=== PATIENT | male | born 1980 | race Caucasian/White ===

== ENCOUNTER 2024-04-22 09:28 | Emergency (ER) | payer MEDICARE, MEDICAID, SELFPAY ==
--- NOTE | 2024-04-22 | XR_ITS ---
Examination: MRI lumbar spine, without intravenous contrast. MRI lumbar spine , with intravenous contrast. Exam date and time: April 22, 2024 1516 hrs. Indications: Low back pain today, osteolytic lesion: CT scan of the abdomen today, abdominal and back pain Technique: Multiple axial, sagittal and coronal images of the lumbar spine have been obtained with the Siemens high-resolution 1.5 Jojo MRI scanner. Images obtained included T2 weighted fat suppressed sagittal sections, TR 3500, TE 46, T2 weighted coronal fat suppressed images, TR 3050, TE 84, T2-weighted transverse fat suppressed images, TR 30-60, TE 63, proton density transverse images, TR 4720, TE 46, and T1 weighted coronal images, TR 560, TE 13. Axial, sagittal and coronal images are obtained post intravenous 18 cc gadolinium Findings: Precontrast images demonstrate abnormal signal replacing the L2 vertebral body Postcontrast images demonstrate diffuse abnormal enhancement of this vertebral body including epidural tumor encroaching upon the right margin of the thecal sac, extending to both intervertebral foramina axial image 27 Enhancing tumor replaces the L2 vertebral body extending into the right pedicle with soft tissue enhancing tumor paraspinal Epidural enhancement also posterior to L3, L4, L5 suspicious for tumor involvement Impression: Tumor replaces the L2 vertebral body encroaching upon the spinal canal axial image 27, highest on the differential list is osseous metastatic disease Consider MRI cervical thoracic spine post contrast follow-up, whole body bone scan follow-up
[2024-04-22 10:04] VITALS: BP 125/82; PULSE 98; RESP 20; TEMP 36.4; O2SAT 97
[2024-04-22 10:06] VITALS: BMI 29.6
--- NOTE | 2024-04-22 10:16 | XR_ITS ---
Examination: CT abdomen and pelvis without contrast. Coronal 3-D reconstructions. Sagittal 2-D reconstructions. Date and time of exam:April 22, 2024 1039 hrs. Indications: Left-sided flank pain beginning 2 days ago CTDI: vol (mGy): 10.1 DLP: (mGycm): 598 Technique: Axial images of the abdomen have been obtained, 3 mm slice thickness Intravenous contrast material has not been administered. Low dose protocols were performed. One or more of the following dose reduction techniques were used; automated exposure control, adjustment of the mA and/or KV according to patient size, use of iterative reconstruction technique. Findings: No focal liver or splenic lesions Fatty liver No gallstones No pancreatic mass Multiple 1 to 2 mm right renal calculi No hydronephrosis or ureteral calculi Mild left hydronephrosis with wall thickening of the urinary bladder No definite ureteral calculi Aorta normal size No bowel obstruction Normal appendix 24 x 25 mm osteolytic lesion posterior L2 vertebral body This may represent a hemangioma but other osteolytic lesions not excluded, as the cortex along the right lateral aspect of this vertebral body appears discontinuous, axial image 137 Impression: Multiple nonobstructing right renal calculi Left mild hydronephrosis and thickening of the urinary bladder wall consistent with left urinary tract infections cystitis Large osteolytic lesion L2 vertebral body, differential would include hemangioma, other osteolytic lesions not excluded, recommend MRI lumbar spine follow-up pre and postcontrast
--- NOTE | 2024-04-22 10:16 | PD.EDRME ---
Rapid Medical Screening Exam RME Arrival date/time: 04/22/24 09:28 33-year-old male presents the emergency department today with caregiver reports patient has lower back pain and flank pain Chief Complaint: Back Pain/Injury Time Seen by Provider: 04/22/24 09:33 Vital signs: Vital Signs Temperature 97.5 F 04/22/24 10:04 Pulse Rate 98 04/22/24 10:04 Respiratory Rate 20 04/22/24 10:04 Blood Pressure 125/82 04/22/24 10:04 Pulse Oximetry (%) 97 04/22/24 10:04 Oxygen Delivery Method Room Air 04/22/24 10:04
[2024-04-22 10:52] LABS: Collection Type, Urine Clean Catch
[2024-04-22 11:03] LABS: Basophils # (Auto) 0.1 Thou/mm3 (0.0-0.2); Basophils % (Auto) 1 % (0-2.5); Eosinophils # (Auto) 0.3 Thou/mm3 (0.0-0.5); Eosinophils % (Auto) 3 % (0-10); Hematocrit 47.3 % (41.0-53.0); Hemoglobin 16.6 g/dL (13.5-16.0); Immature Granulocytes % (Auto) 0 % (0-0); Immature Granulocytes Auto 0.03 Thou/mm3 (0.00-0.00); Lymphocytes # (Auto) 2.3 Thou/mm3 (1.0-4.8); Lymphocytes % (Auto) 27 % (10-50); Mean Corpuscular HGB Conc 35.1 g/dl (31.0-37.0); Mean Corpuscular Hemoglobin 27.9 pg (25.0-35.0); Mean Corpuscular Volume 79 fL (80-100); Monocytes # (Auto) 0.9 Thou/mm3 (0.0-0.8); Monocytes % (Auto) 10 % (0-12); Neutrophils % (Auto) 58 % (37-80); Nucleated Red Blood Cell % 0 /100 WBC (0); Platelet Count 281 Thou/mm3 (140-440); RDW Standard Deviation 39.7 fL (35.1-43.9); Red Blood Count 5.96 Miln/mm3 (4.50-5.90); White Blood Count 8.5 Thou/mm3 (3.8-10.6)
[2024-04-22 11:08] LABS: Bilirubin,Urine Negative (Negative); Blood,Urine Negative (Negative); Clarity,Urine Clear (Clear/Hazy); Color,Urine Lt-Yellow (Lt Yel-Yel); Culture Indicated,Urine Not Indicated; Glucose, Urine Negative (Negative); Ketones,Urine Negative (Negative); Leukocyte Esterase,Urine Negative (Negative); Nitrite,Urine Negative (Negative); PH,Urine 6.5 (5.0-7.0); Protein,Urine Negative (Neg - Trace); RBC,Urine 2 /hpf (0-3); Specific Gravity,Urine 1.009 (1.001-1.035); Squamous Epithelial Cell,Urine < 1 /hpf (0-5); Urobilinogen,Urine Negative mg/dL (0.0-1.0); WBC,Urine 1 /hpf (0-5)
[2024-04-22 11:08] LABS: Alanine Aminotransferase 37 U/L (10-49); Albumin/Globulin Ratio 1.7 (1.2-2.2); Alkaline Phosphatase 140 U/L (46-116); Anion Gap 6 (7-16); Aspartate Amino Transferase 18 U/L (0-34); BUN/Creatinine Ratio 16 Ratio (12-20); Bilirubin,Total 0.6 mg/dL (0.3-1.2); Blood Urea Nitrogen 14 mg/dL (9-23); Calcium 10.5 mg/dL (8.3-10.6); Calcium (Corrected) 10.5 mg/dL (8.5-10.1); Carbon Dioxide 27.3 mMol/L (20.0-31.0); Chloride 104 mMol/L (98-107); Creatinine (Component) 0.9 mg/dL (0.6-1.3); Estimated Creatinine Clearance 121.3 mL/min (>60); Glucose 99 mg/dL (74-106); Lipase 53 U/L (12-53); Osmolality,Calculated 274 (275-295); Potassium 4.1 mMol/L (3.4-5.1); Sodium 137 mMol/L (136-145); eGFR > 60 See Note
[2024-04-22 11:20] LABS: Amphetamine/Methamp Scrn,U Negative (Negative); Barbiturate Screen,Urine Negative (Negative); Benzodiazepines Screen,Urine Negative (Negative); Benzoylecgonine Screen, Ur Negative (Negative); Fentanyl Screen,Urine Negative (Negative); Opiate Screen,Urine Negative (Negative); THC Screen,Urine Negative (Negative)
--- NOTE | 2024-04-22 12:43 | PD.EDBACK ---
ED Back Injury Pain RME/HPI General Chief Complaint: Back Pain/Injury Stated Complaint: LEFT FLANK PAIN Time Seen by Provider: 04/22/24 09:33 Arrival date/time: 04/22/24 09:28 RME / HPI RME / HPI Narrative: 33-year-old male with significant history of mental retardation, presents the emergency department today with caregiver reports patient has lower back pain and flank pain, is been ongoing for several days, getting worse last night, according to him severity is 10 out of 10. Patient denies any numbness to the leg. Denies any incontinent both bowel and bladder. Denies any fever. Denies any other complaints. No medication is taken prior to arrival. Patient is ambulatory. Related Data Home Medications ?Medication ?Instructions ?Recorded ?Confirmed Benztropine Mesylate * (COGENTIN *) 2 mg PO DAILY TREMORS ##0 10/01/12 06/22/23 metoprolol tartrate 25 mg tablet 25 mg PO BID 10/19/19 06/22/23 risperidone 0.25 mg tablet 0.25 mg PO QDAY 10/19/19 06/22/23 sertraline 20 mg/mL oral 100 mg PO QDAY 06/18/23 06/23/23 concentrate Previous Rx's ?Medication ?Instructions ?Recorded sulfamethoxazole 800 1 tab PO BID #14 tabs 07/25/23 mg-trimethoprim 160 mg tablet (Bactrim DS) Allergies Allergy/AdvReac Type Severity Reaction Status Date / Time No Known Allergies Allergy Verified 04/22/24 14:26 Review of Systems Review of Systems Narrative Review of Systems: Review of system reviewed and within normal limits except mentioned in HPI ED Exam Narrative Physical exam: VITAL SIGNS: Reviewed. GENERAL APPEARANCE: Alert and interactive, follows commands, no acute distress, HEAD AND FACE: Non-traumatic. ENT: PERRL, pink conjunctivitis, eyelid no trauma, Mucous membrane moist. NECK: Supple, nontender, no nuchal rigidity. CHEST: No tenderness, no crepitus, no paradoxical movement, no retractions. LUNGS: Clear, well ventilated, symmetric, no rales, no wheezing, no ronchi, no stridor, good breath sounds bilaterally. HEART: Regular rate, regular rhythm, no murmur, no gallops. ABDOMEN: Soft, positive bowel sounds, nondistended, no guarding, nontender, no rebound, no masses, RECTAL: Deferred. GENITAL: Deferred. NEUROLOGICAL: Gross motor function intact sensory function intact, Appropriate for age. MUSCULOSKELETAL: low back tenderness, left flank tenderness, full range of motion. EXTREMITIES: Nontender, full range of motion. SKIN: Color pink, dry, no rash, no lacerations, no abrasions, no contusions. LYMPHATICS: Deferred. Course Quality Measures none Orders Category Date Time Status MRI Screening NOW Care 04/22/24 12:38 Active Referral - Vp Home Health Stat Cons 04/22/24 18:[address] abdomen pelvis wo con Stat Exams 04/22/24 10:16 Completed MR lumbar spine wo/w con Stat Exams 04/22/24 Completed CBC Stat Lab 04/22/24 10:28 Completed Comprehensive Metabolic Panel Stat Lab 04/22/24 10:28 Completed Drug Screen,Urine Stat Lab 04/22/24 10:43 Completed Lipase Stat Lab 04/22/24 10:28 Completed UA, C/S IF [Urinalysis, C/S if Indicated] Stat Lab 04/22/24 10:43 Completed Montelukast Sodium [Singulair] Med 04/22/24 20:32 Discontinued 10 mg PO X1 ONE risperiDONE [RisperDAL] Med 04/22/24 20:31 Discontinued 0.5 mg PO X1 ONE Vital Signs Vital signs: Vital Signs Temperature 97.5 F 04/22/24 10:04 Pulse Rate 98 04/22/24 10:04 Respiratory Rate 20 04/22/24 10:04 Blood Pressure 125/82 04/22/24 10:04 Pulse Oximetry (%) 97 04/22/24 10:04 Oxygen Delivery Method Room Air 04/22/24 10:04 Back Pain / Injury MDM Narrative MDM Narrative:: 33-year-old male with significant history of mental retardation, presents the emergency department today with caregiver reports patient has lower back pain and flank pain, is been ongoing for several days, according to him severity is 10 out of 10. Patient denies any numbness to the leg. Denies any incontinent both bowel and bladder. Denies any fever. Denies any other complaints no medication is taken prior to arrival. Patient is ambulatory. MRI of the lumbar spine showed L2 vertebral replaced by a tumor, with encroachment on the spinal canal Spoke with transfer center by [facility], who accepted the patient, accepting MD Dr. Stokes Patient data External records reviewed:: None Clinical information provided by:: patient and admin assistant Social determinants that could affect healthcare access:: none Patient has the following chronic illnesses:: Mental retardation How is presenting disease/condition affected by chronic disease/condition?: no chronic disease Evaluation data The following diagnostics were reviewed and interpreted by me:: lab results and radiology exam(s) Lab and/or radiology exams considered but not ordered:: None Interpretation Summary: Patient's laboratory workup all came back unremarkable. MRI of the lumbar spine showed Tumor replaces the L2 vertebral body encroaching upon the spinal canal axial image 27, highest on the differential list is osseous metastatic disease Consider MRI cervical thoracic spine post contrast follow-up, whole body bone scan follow-up Medications / Prescriptions Medications or Prescriptions considered but not ordered:: None Medication administrations:: Medication Administration History Discontinued Medications Montelukast Sodium (Montelukast Sodium 10 Mg Tablet) 10 mg PO X1 ONE Stop: 04/22/24 20:33 Risperidone (Risperidone 0.5 Mg Tablet) 0.5 mg PO X1 ONE Stop: 04/22/24 20:32 Risperidone and montelukast Consultations Consultation(s) initiated? (list below): Yes Consultation #1 (Physician, Specialty, Details): Transfer center from [facility] Diagnosis Differential diagnosis back pain/injury: lumbar radiculopathy, sciatica and other (L2 tumor) Most likely diagnosis given after review of the tests above:: L2 tumor Admission Indicated Admission indicated?: indicated Explain why admission is indicated or not indicated:: Patient transferred to [facility] Admission Request Was there a request for admission?: No Disposition Plan Disposition Plan: Transfer Discharge Attestation Discharge Attestation: Got accepted to [facility] , accepting Dr. Divya BURROWS Discharge Plan Plan Patient Disposition: HOME (Self Care) Disposition Comment: Stable Prescriptions/Referrals Prescriptions/Med Rec: No Action Benztropine Mesylate * (COGENTIN *) 2 MG tablet 2 mg PO DAILY Qty: 0 risperidone 0.25 mg Tablet 0.25 mg PO QDAY metoprolol tartrate 25 mg Tablet 25 mg PO BID sertraline 20 mg/mL Concentrate 100 mg PO QDAY sulfamethoxazole-trimethoprim [Bactrim DS] 800-160 mg tablet 1 tab PO BID Qty: 14 0RF Referrals: Sameer Ellis MD [Primary Care Provider] - In 1 week Problem List Clinical Impression: Lumbar spine tumor Patient/Caregiver Discharge Instructions Print Language: Maltese Stand Alone Forms: Mary Award Info., Patient Portal Info Letter
[2024-04-22 13:58] VITALS: BP 117/80; PULSE 81; RESP 20; TEMP 36.7; O2SAT 96
--- NOTE | 2024-04-22 15:15 | PC.NURSE ---
patient taken to MRI
[2024-04-22 16:23] VITALS: BP 114/83; PULSE 91; RESP 18; TEMP 36.7; O2SAT 96
--- NOTE | 2024-04-22 18:12 | PC.CM ---
Addendum entered by Erin Coffey RN 04/22/24 18:43: [facility] called and spoke to Jimmy Price and they told him they do not do spine surgery. They declined patient. I faxed over information to [facility] and I initiated a transfer. I pushed over image. Original Note: I received a referral to transfer patient for neurosurgery due to L2 tumor encroaching the spinal canal. I contacted [facility] and I faxed over information. Packet started and CD made for packet.
--- NOTE | 2024-04-22 18:31 | PC.NURSE ---
patient asked for food okayed by salvador CHRISTENSEN gave patient sandwhich, applejuice and pudding.
[2024-04-22 18:38] VITALS: BP 135/90; PULSE 85; RESP 16; TEMP 36.7; O2SAT 98
--- NOTE | 2024-04-22 20:26 | PC.NURSE ---
2025,ACCEPTED TO [facility] BY , ED TO ED, REPORT #[phone], spoke to anaya
[2024-04-22 20:39] VITALS: BP 123/83; PULSE 110; RESP 18; TEMP 36.8; O2SAT 96
[2024-04-22] MEDS: MONTELUKAST SODIUM 10 MG TABLET PO (21:18)
[2024-04-22] MEDS: risperiDONE 0.5 MG TABLET PO (21:18)
[2024-04-22 21:27] VITALS: BP 136/86; PULSE 105; RESP 18; O2SAT 97
--- NOTE | 2024-04-22 22:20 | PC.NURSE ---
Report called to Zamzam RN [facility]. Pt alert and with NAD.
--- NOTE | 2024-04-22 22:21 | PC.NURSE ---
EMS here. Report given to ems. pT TAK[facility] BY AMBULANCE TO [id number]
== END 2024-04-22 22:28 | disposition short-term general hospital (02) ==
PROVIDERS: Nurse Practitioner Primary Care; Emergency Provider Emergency Medicine; PCP Family Medicine
DX: D49.2 Neoplasm of unspecified behavior of bone, soft tissue, and skin (principal); R10.9 Unspecified abdominal pain; Z75.1 Person awaiting admission to adequate facility elsewhere
CPT/HCPCS: 36415; 72158; 74176; 80053; 80307; 81001; 83690; 85025; 99285; A9579; A9270

== ENCOUNTER 2024-04-30 16:58 | Emergency (ER) | payer MEDICARE, MEDICAID, SELFPAY ==
[2024-04-30 16:59] VITALS: BMI 30.4
[2024-04-30 18:04] VITALS: BP 137/93; PULSE 89; RESP 19; TEMP 37.2; O2SAT 96
--- NOTE | 2024-04-30 18:18 | PD.EDRME ---
Rapid Medical Screening Exam RME Arrival date/time: 04/30/24 16:58 43 year old male present to ED for c/o of dutton check/ I have greeted and performed a focused initial assessment of this patient. A comprehensive ED assessment and evaluation of the patient, analysis of all test results, and completion of the medical decision making process will be conducted by additional ED providers. Chief Complaint: Back Pain/Injury Time Seen by Provider: 04/30/24 18:11 Vital signs: Vital Signs Temperature 98.9 F 04/30/24 18:04 Pulse Rate 89 04/30/24 18:04 Respiratory Rate 19 04/30/24 18:04 Blood Pressure 137/93 H 04/30/24 18:04 Pulse Oximetry (%) 96 04/30/24 18:04 Oxygen Delivery Method Room Air 04/30/24 18:04
[2024-04-30 18:45] LABS: Collection Type, Urine Catheter; Squamous Epithelial Cell,Urine 0 /hpf (0-5)
[2024-04-30 18:52] LABS: Basophils # (Auto) 0.1 Thou/mm3 (0.0-0.2); Basophils % (Auto) 1 % (0-2.5); Eosinophils # (Auto) 0.2 Thou/mm3 (0.0-0.5); Eosinophils % (Auto) 2 % (0-10); Hematocrit 47.8 % (41.0-53.0); Hemoglobin 16.8 g/dL (13.5-16.0); Immature Granulocytes % (Auto) 0 % (0-0); Immature Granulocytes Auto 0.03 Thou/mm3 (0.00-0.00); Lymphocytes # (Auto) 2.3 Thou/mm3 (1.0-4.8); Lymphocytes % (Auto) 26 % (10-50); Mean Corpuscular HGB Conc 35.1 g/dl (31.0-37.0); Mean Corpuscular Hemoglobin 28.1 pg (25.0-35.0); Mean Corpuscular Volume 80 fL (80-100); Monocytes % (Auto) 11 % (0-12); Neutrophils # (Auto) 5.3 Thou/mm3 (1.8-7.7); Neutrophils % (Auto) 60 % (37-80); Nucleated Red Blood Cell % 0 /100 WBC (0); Platelet Count 291 Thou/mm3 (140-440); RDW Standard Deviation 39.7 fL (35.1-43.9); Red Blood Count 5.97 Miln/mm3 (4.50-5.90); White Blood Count 8.9 Thou/mm3 (3.8-10.6)
[2024-04-30 18:53] LABS: Amorphous Crystals,Urine Present (Absent); Bilirubin,Urine Negative (Negative); Blood,Urine 2+ (Negative); Color,Urine Lt-Yellow (Lt Yel-Yel); Glucose, Urine Negative (Negative); Ketones,Urine Negative (Negative); Leukocyte Esterase,Urine Positive (Negative); Nitrite,Urine Positive (Negative); PH,Urine 7.5 (5.0-7.0); Protein,Urine 2+ (Neg - Trace); RBC,Urine 154 /hpf (0-3); Specific Gravity,Urine 1.013 (1.001-1.035); Urobilinogen,Urine Negative mg/dL (0.0-1.0); WBC,Urine 13 /hpf (0-5)
[2024-04-30 18:57] LABS: Clarity,Urine Hazy (Clear/Hazy)
[2024-04-30 19:19] LABS: Alanine Aminotransferase 18 U/L (10-49); Albumin, Serum 4.8 gm/dL (3.5-5.0); Albumin/Globulin Ratio 1.5 (1.2-2.2); Alkaline Phosphatase 134 U/L (46-116); Anion Gap 7 (7-16); Aspartate Amino Transferase 16 U/L (0-34); BUN/Creatinine Ratio 14 Ratio (12-20); Bilirubin,Total 0.5 mg/dL (0.3-1.2); Blood Urea Nitrogen 14 mg/dL (9-23); Calcium 10.9 mg/dL (8.3-10.6); Calcium (Corrected) 10.9 mg/dL (8.5-10.1); Carbon Dioxide 27.8 mMol/L (20.0-31.0); Chloride 105 mMol/L (98-107); Estimated Creatinine Clearance 109.7 mL/min (>60); Globulin 3.1 gm/dL (2.3-3.5); Glucose 114 mg/dL (74-106); Osmolality,Calculated 280 (275-295); Sodium 140 mMol/L (136-145); Total Protein 7.9 gm/dL (5.7-8.2); eGFR > 60 See Note
--- NOTE | 2024-04-30 19:27 | PD.EDRME ---
Rapid Medical Screening Exam RME Arrival date/time: 04/30/24 16:58 04/30/24 16:58 43 year old male present to ED for c/o of dutton check/ I have greeted and performed a focused initial assessment of this patient. A comprehensive ED assessment and evaluation of the patient, analysis of all test results, and completion of the medical decision making process will be conducted by additional ED providers. Chief Complaint: Back Pain/Injury Time Seen by Provider: 04/30/24 18:11 Vital signs: Vital Signs Temperature 98.9 F 04/30/24 18:04 Pulse Rate 89 04/30/24 18:04 Respiratory Rate 19 04/30/24 18:04 Blood Pressure 137/93 H 04/30/24 18:04 Pulse Oximetry (%) 96 04/30/24 18:04 Oxygen Delivery Method Room Air 04/30/24 18:04 RME Narrative: 04/30/24 16:58 43 year old male present to ED for c/o of dutton check/ I have greeted and performed a focused initial assessment of this patient. A comprehensive ED assessment and evaluation of the patient, analysis of all test results, and completion of the medical decision making process will be conducted by additional ED providers.
[2024-04-30 20:05] VITALS: BP 128/100; PULSE 100; RESP 18; TEMP 36.3; O2SAT 96
--- NOTE | 2024-04-30 21:22 | EDNOTE_ITS ---
ED Back Injury Pain RME/HPI General Chief Complaint: Back Pain/Injury Stated Complaint: POSS BLOOD IN MELGOZA Time Seen by Provider: 04/30/24 18:11 Arrival date/time: 04/30/24 16:58 RME / HPI RME / HPI Narrative: 04/30/24 16:58 43 year old male present to ED for c/o of melgoza check/ I have greeted and performed a focused initial assessment of this patient. A comprehensive ED assessment and evaluation of the patient, analysis of all test results, and completion of the medical decision making process will be conducted by additional ED providers. -------- Dr. Adkins's Main ED Evaluation: 43yo male presents to the ED requesting to have his melgoza catheter checked out. Patient states he's had some lower back pain, reporting he's seen mild blood in his melgoza bag, and is requesting for it to be checked out. He denies any fever, chills, N/V/D, abdominal pain or any other associated symptoms. No known allergies. Related Data Home Medications ?Medication ?Instructions ?Recorded ?Confirmed Benztropine Mesylate * (COGENTIN *) 2 mg PO DAILY TREMORS ##0 10/01/12 06/22/23 metoprolol tartrate 25 mg tablet 25 mg PO BID 10/19/19 06/22/23 risperidone 0.25 mg tablet 0.25 mg PO QDAY 10/19/19 06/22/23 sertraline 20 mg/mL oral 100 mg PO QDAY 06/18/23 06/23/23 concentrate Previous Rx's ?Medication ?Instructions ?Recorded sulfamethoxazole 800 1 tab PO BID #14 tabs 07/25/23 mg-trimethoprim 160 mg tablet (Bactrim DS) cephalexin 500 mg capsule 500 mg PO TID uti 7 days #21 caps 04/30/24 Allergies Allergy/AdvReac Type Severity Reaction Status Date / Time No Known Allergies Allergy Verified 04/30/24 17:01 Review of Systems Review of Systems Systems Reviewed: All systems reviewed, normal except as documented Past Medical History Past Medical History NEUROLOGIC: Negative Neurological Disorders or Seizures CARDIAC: Positive Cardiac Disorders and Hypertension; Negative Congestive Heart Failure RESPIRATORY: Positive Asthma; Negative Chronic Obstructive Pulmonary Disease (COPD) GASTROINTESTINAL: Negative Gastrointestinal Disorders GENITOURINARY: Positive Genitourinary Disorders (urinary retention) and Benign Prostatic Hyperplasia; Negative Renal Disease MUSCULOSKELETAL: Negative Musculoskeletal Disorders ENT: Positive Blind (Left, 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) ENDOCRINE: Negative Endocrine Disorders, Diabetes Mellitus Type 1 or Diabetes Mellitus Type 2 HEMATOLOGIC: Negative Blood Disorders or Sickle Cell Disease PSYCHO/SOCIAL: Positive Anxiety OTHER HISTORY: Positive Developmental Delay; Negative Autoimmune Disease, Blood Transfusions, Blood Transfusion Reaction, Anesthesia Reactions or Cancer Family History FAMILY HISTORY: Negative Family Psychiatric Problems, Family Respiratory Disorders, Family Cardiac Disorders, Family Gastrointestinal Problems, Family Cancer, Family Surgery or Family Anesthesia Reaction Social History SMOKING STATUS: Never smoker SUBSTANCE USE: does not use ED Exam Narrative Physical exam: GENERAL APPEARANCE: alert and oriented x 4, well-developed, well-nourished, no acute distress VITALS: All vitals were reviewed and the pulse ox is 96% on room air, which is normal according to my interpretation. HEENT: Normocephalic, atraumatic; pupils equal, round, reactive to light; EOMI; mucous membranes pink, moist; oropharynx clear NECK: Supple LUNGS: CTABL; no wheezes, no rales, no rhonchi HEART: Regular rate, regular rhythm; normal S1, S2; no murmurs ABDOMEN: non distended; normal BS; soft, no tenderness, no guarding, no rebound; no masses, no organomegaly, no hernia BACK: no CVA tenderness EXTREMITIES: atraumatic; no edema NEUROLOGIC: awake; alert and oriented x4; cranial nerves II-XII grossly intact; no focal sensory or motor deficits Course Quality Measures none Orders Category Date Time Status CBC Stat Lab 04/30/24 18:42 Completed CMP [Comprehensive Metabolic Panel] Stat Lab 04/30/24 18:42 Completed UA [Urinalysis] Stat Lab 04/30/24 18:30 Completed Urine Culture Stat Lab 04/30/24 18:30 Received [id number] [Rocephin] 1,000 mg Med 04/30/24 21:25 Discontinued Lidocaine 1% 20 ml [Xylocaine 1% 20 ML] 2.1 ml IM X1 Vital Signs Vital signs: Vital Signs Temperature 98.9 F 04/30/24 18:04 Pulse Rate 89 04/30/24 18:04 Respiratory Rate 19 04/30/24 18:04 Blood Pressure 137/93 H 04/30/24 18:04 Pulse Oximetry (%) 96 04/30/24 18:04 Oxygen Delivery Method Room Air 04/30/24 18:04 Back Pain / Injury Patient data External records reviewed:: [facility] previous records (Per chart review, patient was seen here on 04/22/24 for a lumbar spine tumor.) Clinical information provided by:: patient Social determinants that could affect healthcare access:: none Patient has the following chronic illnesses:: lumbar spine tumor How is presenting disease/condition affected by chronic disease/condition?: uneffected by Evaluation data The following diagnostics were reviewed and interpreted by me:: lab results Lab and/or radiology exams considered but not ordered:: none Interpretation Summary: CBC is normal, CMP is normal, UA is positive for a UTI, according to my interpretation. Medications / Prescriptions Medications or Prescriptions considered but not ordered:: none Medication administrations:: Medication Administration History Discontinued Medications Ceftriaxone Sodium 1,000 mg/ (Lidocaine HCl 2.1 ml) 0 mg IM X1 ONE Stop: 04/30/24 21:26 Last Admin: 04/30/24 21:33 Dose: 2.1 mg Documented By: SE see above Consultations Consultation(s) initiated? (list below): No Diagnosis Differential diagnosis back pain/injury: renal colic, pyelonephritis and other (UTI, cystitis, worsening lumbar spine tumor) Most likely diagnosis given after review of the tests above:: see below Admission Indicated Admission indicated?: not indicated Admission Request Was there a request for admission?: No Disposition Plan Disposition Plan: Discharge Discharge Attestation Discharge Attestation: The patient and all family members were given an opportunity to ask questions and understood the discharge instructions. Discharge instructions specifically effects, indications for sooner follow up or return to the emergency department, and the expected course of current diagnosis. Patient condition: Stable Discharge Plan Plan Patient Disposition: HOME (Self Care) Disposition Comment: Stable for discharge Patient condition on transfer: Stable Prescriptions/Referrals Prescriptions/Med Rec: New cephalexin 500 mg capsule 500 mg PO TID 7 Days Qty: 21 0RF No Action Benztropine Mesylate * (COGENTIN *) 2 MG tablet 2 mg PO DAILY Qty: 0 risperidone 0.25 mg Tablet 0.25 mg PO QDAY metoprolol tartrate 25 mg Tablet 25 mg PO BID sertraline 20 mg/mL Concentrate 100 mg PO QDAY sulfamethoxazole-trimethoprim [Bactrim DS] 800-160 mg tablet 1 tab PO BID Qty: 14 0RF Referrals: Sameer Ellis MD [Primary Care Provider] - In 1 week Problem List Clinical Impression: Urinary tract infection, Chronic indwelling Melgoza catheter Patient/Caregiver Discharge Instructions Discharge Activity: activity as tolerated Education Materials: Urinary Tract Infections in Men, Understanding Urinary Tract ..., ED Melgoza Catheter, Care, ED Bladder Infection, Male (Adult) Additional Instructions: Please keep makayla appointment with the urologist on . I would continue all his medications until that day and direct all your questions towards the urologist. I have called in a prescription for an antibiotic for Garry's urinary tract infection. This antibiotic is called cephalexin. You should give it 3 times a day for 7 days. If you notice Garry developing any fevers, sweats or chills, or if he complains of increased pain particularly belly pain or lower back pain please return to the ER right away Print Language: Syriac Stand Alone Forms: Mary Award Info., Patient Portal Info Letter
[2024-04-30] MEDS: cefTRIAXone 1,000 MG, LIDOCAINE 1% 20 ML 2.1 ML IM (21:33)
== END 2024-04-30 21:45 | disposition home or self-care (01) ==
PROVIDERS: Physician Assistant; Emergency Provider Emergency Medicine; PCP Family Medicine
DX: N39.0 Urinary tract infection, site not specified (principal); Z96.0 Presence of urogenital implants
CPT/HCPCS: 36415; 80053; 81001; 85025; 87077; 87086; 87186; 96372; 99283; J0696; J3490

== ENCOUNTER 2024-05-17 23:06 | Emergency (ER) | payer MEDICARE, MEDICAID, SELFPAY ==
[2024-05-17 23:35] VITALS: BP 156/91; PULSE 103; RESP 18; TEMP 37.3; O2SAT 96
--- NOTE | 2024-05-17 23:45 | XR_ITS ---
Examination: CT abdomen and pelvis without contrast. Coronal 3-D reconstructions. Sagittal 2-D reconstructions. Date and time of exam:May 17, 2024 11:54 PM INDICATIONS: Onset left-sided abdominal pain today, history right kidney stones mild left hydronephrosis on CT study April 22, 2024 COMPARISON: April 22, 2024 CTDI: vol (mGy): 8.9 DLP: (mGycm): 516 Technique: Axial images of the abdomen have been obtained, 3 mm slice thickness Intravenous contrast material has not been administered. Low dose protocols were performed. One or more of the following dose reduction techniques were used; automated exposure control, adjustment of the mA and/or KV according to patient size, use of iterative reconstruction technique. Findings: I do not visualize definite pneumonia left base Fatty infiltration throughout the liver Mild splenomegaly No gallstones No pancreatic mass Multiple 1 to 2 mm right renal calculi Right perinephric stranding Aorta normal size Normal appendix No bowel obstruction Marked abnormal thickening of the urinary bladder wall with urinary Sharif catheter No prostatomegaly Large radiolucent area in the L2 vertebral body and smaller 10 mm lucent lesion in S1 IMPRESSION: Study is reduced in quality secondary to patient motion Multiple nonobstructing right renal calculi Suspicious for right urinary tract infection Markedly abnormal irregular thickening of the urinary bladder wall, differential would include chronic cystitis, bladder carcinoma not excluded, recommend follow-up Recommend MRI lumbar spine follow-up pre and postcontrast to further assess osteolytic lesion replacing most of the L2 vertebral body
--- NOTE | 2024-05-17 23:45 | PD.EDRME ---
Rapid Medical Screening Exam E Arrival date/time: 05/17/24 23:06 43-year-old male with no known medical history presents to the emergency room with a chief complaint of left-sided flank pain, 7 out of 10 lower abdominal pain x 1 day. I have greeted and performed a focused initial assessment of this patient. A comprehensive ED assessment and evaluation of the patient, analysis of all test results, and completion of the medical decision making process will be conducted by additional ED providers. Chief Complaint: Abdominal Pain Vital signs: Vital Signs Temperature 99.2 F 05/17/24 23:35 Pulse Rate 103 H 05/17/24 23:35 Respiratory Rate 18 05/17/24 23:35 Blood Pressure 156/91 H 05/17/24 23:35 Pulse Oximetry (%) 96 05/17/24 23:35 Oxygen Delivery Method Room Air 05/17/24 23:35 Vital signs reviewed by provider: Yes
[2024-05-18] MEDS: KETOROLAC INJ 60 MG/2 ML VIAL 30 MG IM
[2024-05-18 00:19] LABS: Basophils # (Auto) 0.1 Thou/mm3 (0.0-0.2); Basophils % (Auto) 0 % (0-2.5); Eosinophils # (Auto) 0.2 Thou/mm3 (0.0-0.5); Eosinophils % (Auto) 2 % (0-10); Hematocrit 43.8 % (41.0-53.0); Hemoglobin 15.3 g/dL (13.5-16.0); Immature Granulocytes % (Auto) 1 % (0-0); Immature Granulocytes Auto 0.07 Thou/mm3 (0.00-0.00); Lymphocytes # (Auto) 1.7 Thou/mm3 (1.0-4.8); Lymphocytes % (Auto) 14 % (10-50); Mean Corpuscular HGB Conc 34.9 g/dl (31.0-37.0); Mean Corpuscular Hemoglobin 27.6 pg (25.0-35.0); Mean Corpuscular Volume 79 fL (80-100); Monocytes # (Auto) 1.1 Thou/mm3 (0.0-0.8); Monocytes % (Auto) 9 % (0-12); Neutrophils # (Auto) 9.2 Thou/mm3 (1.8-7.7); Neutrophils % (Auto) 75 % (37-80); Nucleated Red Blood Cell % 0 /100 WBC (0); Platelet Count 288 Thou/mm3 (140-440); RDW Standard Deviation 37.2 fL (35.1-43.9); Red Blood Count 5.55 Miln/mm3 (4.50-5.90); White Blood Count 12.2 Thou/mm3 (3.8-10.6)
[2024-05-18 00:24] LABS: Alanine Aminotransferase 13 U/L (10-49); Albumin, Serum 4.9 gm/dL (3.5-5.0); Albumin/Globulin Ratio 1.6 (1.2-2.2); Alkaline Phosphatase 124 U/L (46-116); Anion Gap 8 (7-16); Aspartate Amino Transferase 10 U/L (0-34); BUN/Creatinine Ratio 16 Ratio (12-20); Bilirubin,Total 0.4 mg/dL (0.3-1.2); Blood Urea Nitrogen 13 mg/dL (9-23); Calcium 10.7 mg/dL (8.3-10.6); Calcium (Corrected) 10.7 mg/dL (8.5-10.1); Carbon Dioxide 28.8 mMol/L (20.0-31.0); Chloride 101 mMol/L (98-107); Creatinine (Component) 0.8 mg/dL (0.6-1.3); Globulin 3.1 gm/dL (2.3-3.5); Glucose 106 mg/dL (74-106); Lipase 42 U/L (12-53); Osmolality,Calculated 275 (275-295); Potassium 3.8 mMol/L (3.4-5.1); Sodium 138 mMol/L (136-145); eGFR > 60 See Note
[2024-05-18 00:36] LABS: Collection Type, Urine Clean Catch; Squamous Epithelial Cell,Urine 0 /hpf (0-5)
[2024-05-18 00:47] LABS: Bacteria,Urine Rare; Bilirubin,Urine Negative (Negative); Blood,Urine Trace (Negative); Color,Urine Lt-Yellow (Lt Yel-Yel); Glucose, Urine Negative (Negative); Ketones,Urine Negative (Negative); Leukocyte Esterase,Urine Positive (Negative); Nitrite,Urine Positive (Negative); Protein,Urine Trace (Neg - Trace); RBC,Urine 2 /hpf (0-3); Specific Gravity,Urine 1.008 (1.001-1.035); Urobilinogen,Urine Negative mg/dL (0.0-1.0); WBC,Urine 54 /hpf (0-5)
[2024-05-18 00:50] LABS: Clarity,Urine Hazy (Clear/Hazy)
--- NOTE | 2024-05-18 01:23 | PRELIM_ITS ---
CT scan of the abdomen and pelvis without intravenous contrast (axial sections with sagittal and nancy nal reformats) May 17, 2024 at 2353 hours Clinical History: Abdominal pain.Reference is made to t he prior report dated October 20, 2019.Findings:The evaluation is limited by respiratory motion. Minimal patchy infiltrates in the left lower lobe. There are small nonobstructing right renal calculi with m ild possible right peripelvic stranding, although evaluation limited due to motion. The liver, gallbl adder, pancreas, spleen, and adrenals are unremarkable on this noncontrast study.The stomach is diste nded with food residue. No evidence of bowel dilatation. Moderate amount of fecal material is present in the colon. The appendix is within normal limits. A Sharif catheter is seen in the urinary bladder. The urinary bladder is not well distended with apparent wall thickening. Prostatic calcifications ar e noted. There is no free fluid or free air. There is no adenopathy. There is a expansile lucency in the vertebral body of the L2 vertebra, extending to the pedicle on the right. Another small lucency is seen in the S1 body.Impression:Sharif catheter seen in an incompletely distended urinary bladder w ith possible cystitis. Mild possible right renal peripelvic stranding, although evaluation limited du e to motion, infection cannot be excluded. Lucency in the vertebral body of the L2 vertebra, extendin g to the pedicle on the right. Another small lucent lesion in the S1 body. A neoplastic etiologyor he mangioma cannot be excluded.Recommendfurther evaluation and followup. Minimal patchy infiltrates in t he left lower lobe. While nonspecific, infection cannot be entirely excluded. Other findings as descr ibed above. Report Electronically Signed By: Abhay Mendes 05/18/2024 1:23:06 AM [EST]
[2024-05-18 02:35] VITALS: BP 155/98; PULSE 97; RESP 17; TEMP 37.2; O2SAT 95
--- NOTE | 2024-05-18 04:17 | EDNOTE_ITS ---
ED Abdominal Pain RME/HPI General Chief Complaint: Abdominal Pain Stated complaint: SIDE PAIN Time seen by provider: 05/18/24 00:34 Arrival date/time: 05/17/24 23:06 Limitations: no limitations RME / HPI RME / HPI narrative: 05/17/24 23:06 43-year-old male with no known medical history presents to the emergency room with a chief complaint of left-sided flank pain, 7 out of 10 lower abdominal pain x 1 day. I have greeted and performed a focused initial assessment of this patient. A comprehensive ED assessment and evaluation of the patient, analysis of all test results, and completion of the medical decision making process will be conducted by additional ED providers. -------- Dr. Becerra's Main ED Evaluation: 43yo male presents to the ED for a chief complaint of left-sided flank pain x 1 day. Patient rates the pain a 7 out of 10 in severity. He has not followed-up with anyone regarding dutton replacement. Patient endorses having a cough. He denies any N/V, fever, chills or any other associated symptoms. No known allergies. Related Data Home Medications ?Medication ?Instructions ?Recorded ?Confirmed Benztropine Mesylate * (COGENTIN *) 2 mg PO DAILY TREMORS ##0 10/01/12 06/22/23 metoprolol tartrate 25 mg tablet 25 mg PO BID 10/19/19 06/22/23 risperidone 0.25 mg tablet 0.25 mg PO QDAY 10/19/19 06/22/23 sertraline 20 mg/mL oral 100 mg PO QDAY 06/18/23 06/23/23 concentrate Previous Rx's ?Medication ?Instructions ?Recorded sulfamethoxazole 800 1 tab PO BID #14 tabs 07/25/23 mg-trimethoprim 160 mg tablet (Bactrim DS) Allergies Allergy/AdvReac Type Severity Reaction Status Date / Time No Known Allergies Allergy Verified 04/30/24 17:01 Review of Systems Review of Systems Systems Reviewed: All systems reviewed, normal except as documented Past Medical History Past Medical History NEUROLOGIC: Negative Neurological Disorders or Seizures CARDIAC: Positive Cardiac Disorders and Hypertension; Negative Congestive Heart Failure RESPIRATORY: Positive Asthma; Negative Chronic Obstructive Pulmonary Disease (COPD) GASTROINTESTINAL: Negative Gastrointestinal Disorders GENITOURINARY: Positive Genitourinary Disorders and Benign Prostatic Hyperplasia; Negative Renal Disease MUSCULOSKELETAL: Negative Musculoskeletal Disorders ENT: Positive Blind ENDOCRINE: Negative Endocrine Disorders, Diabetes Mellitus Type 1 or Diabetes Mellitus Type 2 HEMATOLOGIC: Negative Blood Disorders or Sickle Cell Disease PSYCHO/SOCIAL: Positive Anxiety OTHER HISTORY: Positive Developmental Delay; Negative Autoimmune Disease, Blood Transfusions, Blood Transfusion Reaction, Anesthesia Reactions or Cancer Family History FAMILY HISTORY: Negative Family Psychiatric Problems, Family Respiratory Disorders, Family Cardiac Disorders, Family Gastrointestinal Problems, Family Cancer, Family Surgery or Family Anesthesia Reaction Social History SMOKING STATUS: Never smoker SUBSTANCE USE: does not use ED Exam General Limitations: Present no limitations General appearance: Present alert and in no apparent distress Head Head exam: Present atraumatic Eye Eye exam: Present normal appearance, PERRL and EOMI ENT ENT exam: Present normal exam, normal oropharynx and mucous membranes moist Neck Neck exam: Present normal inspection, full ROM and trachea midline Chest Chest inspection: Present normal inspection and symmetric chest wall rise Respiratory Respiratory exam: Present normal lung sounds bilaterally Cardiovascular Cardiovascular exam: Present regular rate, normal rhythm and normal heart sounds Abdominal Exam Abdominal exam: Present soft and normal bowel sounds Extremities Exam Extremities exam: Present normal inspection and full ROM Back Exam Back exam: Present normal inspection and full ROM; Absent CVA tenderness (R) or CVA tenderness (L) Neurological Exam Neurological exam: Present alert, oriented X3 and CN II-XII intact Psychiatric Psychiatric exam: Present normal affect and normal mood Skin Skin exam: Present warm, dry, intact and normal color Course Quality Measures none Orders Category Date Time Status CT abdomen pelvis wo con Stat Exams 05/17/24 23:45 Taken CBC Stat Lab 05/17/24 23:59 Completed CMP [Comprehensive Metabolic Panel] Stat Lab 05/17/24 23:59 Completed Lipase Stat Lab 05/17/24 23:59 Completed UA [Urinalysis] Stat Lab 05/18/24 00:06 Completed Urinalysis Stat Lab 05/18/24 04:48 Received Urine Culture Stat Lab 05/18/24 00:06 Received Ketorolac Inj [Toradol Inj] Med 05/17/24 23:45 Discontinued 30 mg IM X1 ONE Vital Signs Vital signs: Vital Signs Temperature 99.2 F 05/17/24 23:35 Pulse Rate 103 H 05/17/24 23:35 Respiratory Rate 18 05/17/24 23:35 Blood Pressure 156/91 H 05/17/24 23:35 Pulse Oximetry (%) 96 05/17/24 23:35 Oxygen Delivery Method Room Air 05/17/24 23:35 Pulse ox is 96% on room air, which is normal according to my interpretation. Abdominal Pain MDM Patient data External records reviewed:: [facility] previous records (Per chart review, patient was seen here on 04/30/24 for a UTI.) Clinical information provided by:: patient Social determinants that could affect healthcare access:: none Patient has the following chronic illnesses:: BPH, HTN How is presenting disease/condition affected by chronic disease/condition?: exacerbated by Evaluation data The following diagnostics were reviewed and interpreted by me:: lab results Lab and/or radiology exams considered but not ordered:: none Interpretation Summary: WBC count is elevated at 12.2, CMP is normal, Lipase is normal, according to my interpretation. UA obtained from the catheter shows a UTI. ---- [facility] Preliminary Report Draft Patient: KLARISSA CARUSO [employer]. Record#: [id number] Birthdate: 1980 Age/Sex: 43 / M Location: [facility] Attending Dr: Ordering Physician: Date of Service: Procedure(s): Accession Number(s): cc: ~ CT scan of the abdomen and pelvis without intravenous contrast (axial sections with sagittal and coronal reformats) May 17, 2024 at 2353 hours Clinical History: Abdominal pain. Reference is made to the prior report dated October 20, 2019. Findings: The evaluation is limited by respiratory motion. Minimal patchy infiltrates in the left lower lobe. There are small nonobstructing right renal calculi with mild possible right peripelvic stranding, although evaluation limited due to motion. The liver, gallbladder, pancreas, spleen, and adrenals are unremarkable on this noncontrast study. The stomach is distended with food residue. No evidence of bowel dilatation. Moderate amount of fecal material is present in the colon. The appendix is within normal limits. A Dutton catheter is seen in the urinary bladder. The urinary bladder is not well distended with apparent wall thickening. Prostatic calcifications are noted. There is no free fluid or free air. There is no adenopathy. There is a expansile lucency in the vertebral body of the L2 vertebra, extending to the pedicle on the right. Another small lucency is seen in the S1 body. Impression: Dutton catheter seen in an incompletely distended urinary bladder with possible cystitis. Mild possible right renal peripelvic stranding, although evaluation limited due to motion, infection cannot be excluded. Lucency in the vertebral body of the L2 vertebra, extending to the pedicle on the right. Another small lucent lesion in the S1 body. A neoplastic etiologyor hemangioma cannot be excluded.Recommendfurther evaluation and followup. Minimal patchy infiltrates in the left lower lobe. While nonspecific, infection cannot be entirely excluded. Other findings as described above. Report Electronically Signed By: Abhay Mendes 05/18/2024 1:23:06 AM [EST] Medications / Prescriptions Medications or Prescriptions considered but not ordered:: none Medication administrations:: Medication Administration History Discontinued Medications Ketorolac Tromethamine (Ketorolac Inj 60 Mg/2 Ml Vial) 30 mg IM X1 ONE Stop: 05/17/24 23:46 Last Admin: 05/18/24 00:00 Dose: 30 mg Documented By: RACHELL see above Consultations Consultation(s) initiated? (list below): No Diagnosis Differential diagnosis abdominal pain: other (dutton malfunction, UTI, cystitis, pyelonephritis) Most likely diagnosis given after review of the tests above:: see below Admission Indicated Admission indicated?: not indicated Admission Request Was there a request for admission?: No Disposition Plan Disposition Plan: Discharge Discharge Attestation Discharge Attestation: The patient and all family members were given an opportunity to ask questions and understood the discharge instructions. Discharge instructions specifically effects, indications for sooner follow up or return to the emergency department, and the expected course of current diagnosis. Patient condition: Stable Discharge Plan Plan Patient condition on transfer: Stable Prescriptions/Referrals Prescriptions/Med Rec: No Action Benztropine Mesylate * (COGENTIN *) 2 MG tablet 2 mg PO DAILY Qty: 0 risperidone 0.25 mg Tablet 0.25 mg PO QDAY metoprolol tartrate 25 mg Tablet 25 mg PO BID sertraline 20 mg/mL Concentrate 100 mg PO QDAY sulfamethoxazole-trimethoprim [Bactrim DS] 800-160 mg tablet 1 tab PO BID Qty: 14 0RF Referrals: No Primary/Family,Physician [Primary Care Provider] - In 1 week Problem List Clinical Impression: Cough Patient/Caregiver Discharge Instructions Education Materials: ED Cough Chronic Uncertain Cause Adult Print Language: Wolof
[2024-05-18 05:31] LABS: Collection Type, Urine Clean Catch
[2024-05-18 05:57] LABS: Bacteria,Urine Rare; Bilirubin,Urine Negative (Negative); Blood,Urine 1+ (Negative); Budding Yeast,Urine Present; Color,Urine Lt-Yellow (Lt Yel-Yel); Glucose, Urine Negative (Negative); Ketones,Urine Negative (Negative); Leukocyte Esterase,Urine Positive (Negative); Nitrite,Urine Negative (Negative); PH,Urine 6.5 (5.0-7.0); Protein,Urine 1+ (Neg - Trace); RBC,Urine 19 /hpf (0-3); Specific Gravity,Urine 1.015 (1.001-1.035); Squamous Epithelial Cell,Urine < 1 /hpf (0-5); Urobilinogen,Urine Negative mg/dL (0.0-1.0); WBC,Urine 288 /hpf (0-5)
[2024-05-18 05:58] LABS: Clarity,Urine Hazy (Clear/Hazy)
[2024-05-18] MEDS: KETOROLAC INJ 30 MG/ML VIAL IVP (06:30)
[2024-05-18 06:33] VITALS: PULSE 97; RESP 18; O2SAT 100
[2024-05-18] MEDS: ALBUTEROL/IPRATROPIUM (Duoneb) RT SOL 3 ML NEBU INH (06:33)
--- NOTE | 2024-05-18 07:13 | PC.NURSE ---
Patient complaining of pain 01/10. Informed ER provider and received verbal order for 4mg morphine IV.
[2024-05-18] MEDS: MORPHINE SULF INJ 10 MG/ML VIAL 4 MG IVP (07:23)
== END 2024-05-18 07:31 | disposition home or self-care (01) ==
PROVIDERS: Nurse Practitioner Family; Emergency Provider Emergency Medicine
DX: N32.89 Other specified disorders of bladder (principal); M48.8X6 Other specified spondylopathies, lumbar region; M53.3 Sacrococcygeal disorders, not elsewhere classified; R91.8 Other nonspecific abnormal finding of lung field; R05.9 Cough, unspecified
CPT/HCPCS: 51702; 36415; 74176; 80053; 81001; 83690; 85025; 87077; 87086; 87186; 94640; 96365; 96372; 96375; 99284; A9270; J0696; J1885; J2270

== ENCOUNTER 2024-05-20 00:31 | Emergency (ER) | payer MEDICARE, MEDICAID, SELFPAY ==
[2024-05-20 00:32] VITALS: PULSE 98; RESP 21
[2024-05-20 00:43] VITALS: BP 174/91; PULSE 116; RESP 20; TEMP 37.1; O2SAT 98
--- NOTE | 2024-05-20 00:51 | PD.EDRME ---
Rapid Medical Screening Exam RME Arrival date/time: 05/20/24 00:31 43-year-old male with a history of hypertension presents to the emergency room with a chief complaint of abdominal pain and tenderness there is a 8 out of 10 in severity. Patient is also nauseous and has vomited. I have greeted and performed a focused initial assessment of this patient. A comprehensive ED assessment and evaluation of the patient, analysis of all test results, and completion of the medical decision making process will be conducted by additional ED providers. Chief Complaint: Abdominal Pain Vital signs reviewed by provider: Yes
[2024-05-20] MEDS: KETOROLAC INJ 60 MG/2 ML VIAL 30 MG IM (01:03)
[2024-05-20] MEDS: ONDANSETRON ODT 4 MG TABRAP PO (01:05)
[2024-05-20 01:32] LABS: Basophils % (Auto) 0 % (0-2.5); Hemoglobin 16.4 g/dL (13.5-16.0); Immature Granulocytes % (Auto) 0 % (0-0); Monocytes % (Auto) 7 % (0-12); Neutrophils % (Auto) 88 % (37-80); Nucleated Red Blood Cell % 0 /100 WBC (0)
[2024-05-20 01:36] LABS: Eosinophils % (Auto) 0 % (0-10); Hematocrit 45.4 % (41.0-53.0); Immature Granulocytes Auto 0.07 Thou/mm3 (0.00-0.00); Lymphocytes # (Auto) 0.8 Thou/mm3 (1.0-4.8); Lymphocytes % (Auto) 5 % (10-50); Mean Corpuscular HGB Conc 36.1 g/dl (31.0-37.0); Mean Corpuscular Hemoglobin 27.7 pg (25.0-35.0); Mean Corpuscular Volume 77 fL (80-100); Monocytes # (Auto) 1.1 Thou/mm3 (0.0-0.8); Neutrophils # (Auto) 14.3 Thou/mm3 (1.8-7.7); Platelet Count 333 Thou/mm3 (140-440); RDW Standard Deviation 36.6 fL (35.1-43.9); Red Blood Count 5.91 Miln/mm3 (4.50-5.90); White Blood Count 16.3 Thou/mm3 (3.8-10.6)
[2024-05-20 01:47] LABS: Alanine Aminotransferase 14 U/L (10-49); Albumin, Serum 5.2 gm/dL (3.5-5.0); Albumin/Globulin Ratio 1.5 (1.2-2.2); Alkaline Phosphatase 139 U/L (46-116); Anion Gap 9 (7-16); Aspartate Amino Transferase 13 U/L (0-34); BUN/Creatinine Ratio 16 Ratio (12-20); Blood Urea Nitrogen 14 mg/dL (9-23); Carbon Dioxide 24.9 mMol/L (20.0-31.0); Chloride 102 mMol/L (98-107); Creatinine (Component) 0.9 mg/dL (0.6-1.3); Globulin 3.4 gm/dL (2.3-3.5); Glucose 141 mg/dL (74-106); Lipase 35 U/L (12-53); Osmolality,Calculated 274 (275-295); Potassium 3.6 mMol/L (3.4-5.1); Sodium 136 mMol/L (136-145); Total Protein 8.6 gm/dL (5.7-8.2); eGFR > 60 See Note
[2024-05-20 02:23] LABS: Collection Type, Urine Clean Catch; Squamous Epithelial Cell,Urine 0 /hpf (0-5)
[2024-05-20 02:34] LABS: Bilirubin,Urine Negative (Negative); Blood,Urine Negative (Negative); Clarity,Urine Clear (Clear/Hazy); Color,Urine Lt-Yellow (Lt Yel-Yel); Glucose, Urine Negative (Negative); Ketones,Urine Negative (Negative); Leukocyte Esterase,Urine Positive (Negative); Nitrite,Urine Negative (Negative); PH,Urine 6.5 (5.0-7.0); Protein,Urine 1+ (Neg - Trace); RBC,Urine 5 /hpf (0-3); Specific Gravity,Urine 1.013 (1.001-1.035); Urobilinogen,Urine Negative mg/dL (0.0-1.0); WBC,Urine 40 /hpf (0-5)
--- NOTE | 2024-05-20 04:47 | EDNOTE_ITS ---
ED Abdominal Pain RME/HPI General Chief Complaint: Abdominal Pain Stated complaint: ABDOMINAL PAIN, RECENT UTI Arrival date/time: 05/20/24 00:31 RME / HPI RME / HPI narrative: 05/20/24 00:31 43-year-old male with a history of hypertension presents to the emergency room with a chief complaint of abdominal pain and tenderness there is a 8 out of 10 in severity. Patient is also nauseous and has vomited. I have greeted and performed a focused initial assessment of this patient. A comprehensive ED assessment and evaluation of the patient, analysis of all test results, and completion of the medical decision making process will be conducted by additional ED providers. ----- Dr. Garber?s Main ED Evaluation: 43yo male with a history of BPH, HTN, chronic indwelling dutton presents to the ED for a chief complaint of generalized abdominal pain x tonight. Patient reports associated nausea and vomiting, but does not specify how many episodes he's had. Denies any fever, chills or any other associated symptoms. No known allergies. Related Data Home Medications ?Medication ?Instructions ?Recorded ?Confirmed Benztropine Mesylate * (COGENTIN *) 2 mg PO DAILY TREMORS ##0 10/01/12 06/22/23 metoprolol tartrate 25 mg tablet 25 mg PO BID 10/19/19 06/22/23 risperidone 0.25 mg tablet 0.25 mg PO QDAY 10/19/19 06/22/23 sertraline 20 mg/mL oral 100 mg PO QDAY 06/18/23 06/23/23 concentrate Previous Rx's ?Medication ?Instructions ?Recorded sulfamethoxazole 800 1 tab PO BID #14 tabs 07/25/23 mg-trimethoprim 160 mg tablet (Bactrim DS) amoxicillin 875 mg-potassium 1 tab PO BID #20 tabs 05/18/24 clavulanate 125 mg tablet cephalexin 500 mg capsule 500 mg PO QID 7 days #28 caps 05/20/24 ibuprofen 600 mg tablet 600 mg PO Q8H PRN pain #14 tabs 05/20/24 ondansetron 4 mg disintegrating 4 mg PO Q8H PRN nausea and 05/20/24 tablet vomiting #7 tabs Allergies Allergy/AdvReac Type Severity Reaction Status Date / Time No Known Allergies Allergy Verified 04/30/24 17:01 Review of Systems Review of Systems Systems Reviewed: All systems reviewed, normal except as documented Narrative Review of Systems: Gen: No fever, no chills, no weight loss EYES: No discharge, no visual changes, no pain HEENT: No ear pain, no congestion, no sore throat PULM: No shortness of breath, no cough, no congestion CV: No chest pain, no dyspnea on exertion, no palpitations GI: + nausea, no vomiting, no diarrhea, + pain, no constipation : No frequency, no urgency, no dysuria Musc/skel: No joint pain, no back pain Skin: No rash. Warm and dry. Psyc: No hallucinations, no depression Heme/Lymph: No easy bleeding or bruising tendencies Neuro: No weakness, no headache ED Exam Narrative Physical exam: GENERAL APPEARANCE: AxOx4, generally well-appearing, no acute distress. HEENT: NC, AT. MMM. EOMI, clear conjunctiva, oropharynx clear. NECK: Supple without lymphadenopathy. No stiffness or restricted ROM. HEART: Normal rate and regular rhythm, normal S1/S1, no m/r/g LUNGS: CTAB, moving air well. No crackles or wheezes are heard. ABDOMEN: Soft, nontender, nondistended with good bowel sounds heard. BACK: No midline C/T/L spine pain or deformity, No CVAT, no obvious deformity. : Has a chronic indwelling dutton catheter that is C/D/I. EXTREMITIES: Without cyanosis, clubbing or edema. MUSCULOSKELETAL: FROM of all major joints, no chest tenderness NEUROLOGICAL: Grossly nonfocal. Alert and oriented, moving all 4 extremities. CN not formally tested but appear grossly intact. Skin: Warm and dry without any rash. Course Quality Measures none Orders Category Date Time Status CBC Stat Lab 05/20/24 01:12 Completed CMP [Comprehensive Metabolic Panel] Stat Lab 05/20/24 01:12 Completed Lipase Stat Lab 05/20/24 01:12 Completed UA [Urinalysis] Stat Lab 05/20/24 02:15 Completed Urine Culture Stat Lab 05/20/24 02:00 Received Acetaminophen Tab [Tylenol Tab] Med 05/20/24 04:47 Discontinued 650 mg PO X1 ONE Ketorolac Inj [Toradol Inj] Med 05/20/24 00:49 Discontinued 30 mg IM X1 ONE Ondansetron Inj [Zofran Inj] Med 05/20/24 04:47 Discontinued 4 mg IV X1 ONE Ondansetron Odt [Zofran Odt] Med 05/20/24 00:51 Discontinued 4 mg PO X1 ONE Sodium Chloride 0.9% 1000 ml [Ns] 1,000 ml Med 05/20/24 04:47 Discontinued IV 999 mls/hr cefTRIAXone/D5w 1gm IV premix [Rocephin/D5w 1gm IV Med 05/20/24 04:47 Discontinued premix] 50 ml IV X1 Vital Signs Vital signs: Vital Signs Temperature 98.8 F 05/20/24 00:43 Pulse Rate 116 H 05/20/24 00:43 Respiratory Rate 20 05/20/24 00:43 Blood Pressure 174/91 H 05/20/24 00:43 Pulse Oximetry (%) 98 05/20/24 00:43 Oxygen Delivery Method Room Air 05/20/24 00:43 Pulse ox is 98% on room air, which is normal accordingn to my interpretation. Abdominal Pain MDM MDM Narrative MDM Narrative:: Scribe Attestation: 05/20/24 - Sonia Bradford am scribing for and in the presence of Dr. Garber. Patient data External records reviewed:: [facility] previous records (Per chart review, patient was seen here on 05/18/24 for an acute UTI.) Clinical information provided by:: patient Social determinants that could affect healthcare access:: none Patient has the following chronic illnesses:: BPH, HTN, chronic indwelling dutton catheter How is presenting disease/condition affected by chronic disease/condition?: caused by Evaluation data The following diagnostics were reviewed and interpreted by me:: lab results Lab and/or radiology exams considered but not ordered:: none Interpretation Summary: WBC count is elevated at 16.3, Glucose is 141, Lipase is normal, UA is positive for a UTI, according to my interpretation. Medications / Prescriptions Medications or Prescriptions considered but not ordered:: none Medication administrations:: Medication Administration History Discontinued Medications Acetaminophen (Acetaminophen 325 Mg Tablet) 650 mg PO X1 ONE Stop: 05/20/24 04:48 Last Admin: 05/20/24 05:17 Dose: 650 mg Documented By: JOSE ALBERTO Sodium Chloride (Ns) 1,000 mls @ 999 mls/hr IV .Q1H1M ONE Stop: 05/20/24 05:47 Last Infusion: 05/20/24 06:20 Dose: Infused Documented By: JOSE ALBERTO Admin: 05/20/24 05:18 Dose: 999 mls/hr Documented By: JOSE ALBERTO Ceftriaxone Sodium/Dextrose (Rocephin/D5w 1gm Iv Premix) 50 mls @ 100 mls/hr IV X1 ONE Stop: 05/20/24 05:16 Last Infusion: 05/20/24 05:49 Dose: Infused Documented By: JOSE ALBERTO Admin: 05/20/24 05:19 Dose: 100 mls/hr Documented By: JOSE ALBERTO Ketorolac Tromethamine (Ketorolac Inj 60 Mg/2 Ml Vial) 30 mg IM X1 ONE Stop: 05/20/24 00:50 Last Admin: 05/20/24 01:03 Dose: 30 mg Documented By: BEATRIZ Ondansetron HCl (Ondansetron Odt 4 Mg Tabrap) 4 mg PO X1 ONE; Protocol Stop: 05/20/24 00:52 Last Admin: 05/20/24 01:05 Dose: 4 mg Documented By: BEATRIZ Ondansetron HCl (Ondansetron Inj 2 Mg/Ml Inj 2 Ml) 4 mg IV X1 ONE; Protocol Stop: 05/20/24 04:48 Last Admin: 05/20/24 05:17 Dose: 4 mg Documented By: JOSE ALBERTO see above Consultations Consultation(s) initiated? (list below): No Diagnosis Differential diagnosis abdominal pain: other (UTI, cystitis, pyelonephritis) Most likely diagnosis given after review of the tests above:: see below Admission Indicated Admission indicated?: not indicated Admission Request Was there a request for admission?: No Disposition Plan Disposition Plan: Discharge Discharge Attestation Discharge Attestation: The patient and all family members were given an opportunity to ask questions and understood the discharge instructions. Discharge instructions specifically effects, indications for sooner follow up or return to the emergency department, and the expected course of current diagnosis. Patient condition: Stable Discharge Plan Plan Patient Disposition: HOME (Self Care) Prescriptions/Referrals Prescriptions/Med Rec: New cephalexin 500 mg capsule 500 mg PO QID 7 Days Qty: 28 0RF ibuprofen 600 mg tablet 600 mg PO Q8H PRN (Reason: pain) Qty: 14 0RF ondansetron 4 mg tablet,disintegrating 4 mg PO Q8H PRN (Reason: nausea and vomiting) Qty: 7 0RF No Action Benztropine Mesylate * (COGENTIN *) 2 MG tablet 2 mg PO DAILY Qty: 0 risperidone 0.25 mg Tablet 0.25 mg PO QDAY metoprolol tartrate 25 mg Tablet 25 mg PO BID sertraline 20 mg/mL Concentrate 100 mg PO QDAY sulfamethoxazole-trimethoprim [Bactrim DS] 800-160 mg tablet 1 tab PO BID Qty: 14 0RF amoxicillin-pot clavulanate 875-125 mg tablet 1 tab PO BID Qty: 20 0RF Referrals: Sameer Ellis MD [Primary Care Provider] - In 1 week Problem List Clinical Impression: Acute pyelonephritis Patient/Caregiver Discharge Instructions Education Materials: ED Pyelonephritis, Male (Adult) Additional Instructions: Drink plenty of fluids and take all medicines as prescribed. These include antibiotics to help clear your urinary infection. Follow-up with your primary care doctor in 3 to 5 days for recheck. You can return to the emergency department sooner if symptoms worsen or if you notice any new, concerning issues. Print Language: Mongolian Stand Alone Forms: Mary Award Info., Patient Portal Info Letter
[2024-05-20] MEDS: ONDANSETRON INJ 2 MG/ML INJ 2 ML 4 MG IV (05:17)
[2024-05-20] MEDS: ACETAMINOPHEN 325 MG TABLET 650 MG PO (05:17)
[2024-05-20] MEDS: SODIUM CHLORIDE 0.9% 1000 ML 1,000 ML 999 ML IV (05:18)
[2024-05-20 05:19] VITALS: BP 150/98; PULSE 107; RESP 18; TEMP 36.9; O2SAT 95
[2024-05-20] MEDS: cefTRIAXone/D5w 1gm IV premix 50 ML IV (05:19)
== END 2024-05-20 06:48 | disposition home or self-care (01) ==
PROVIDERS: Nurse Practitioner Family; Emergency Provider Emergency Medicine; PCP Family Medicine
DX: N10 Acute pyelonephritis (principal); I10 Essential (primary) hypertension; N40.0 Benign prostatic hyperplasia without lower urinary tract symptoms
CPT/HCPCS: 36415; 80053; 81001; 83690; 85025; 87086; 96361; 96365; 96372; 96375; 99284; J0696; J1885; J2405; J7030; Q0162; A9270

== ENCOUNTER 2024-05-21 09:15 | Emergency (ER) | payer MEDICARE, MEDICAID, SELFPAY ==
[2024-05-21 09:30] VITALS: BP 195/82; PULSE 110; RESP 18; TEMP 36.9; O2SAT 97
--- NOTE | 2024-05-21 09:37 | PD.EDADULT ---
ED General RME/HPI General Chief complaint: Back Pain/Injury Stated complaint: catheter bag has hole, back pain Time Seen by Provider: 05/21/24 09:34 Arrival date/time: 05/21/24 09:15 RME / HPI RME / HPI narrative: DR. DOE MAIN ED EVALUATION: 43 year old male with past medical history significant for developmental delay, lumbar tumor, hypertension, and chronic indwelling Sharif catheter presents to the Emergency Department to get his catheter changed, per hand inserter operator. Patient also complains of left lower back pain and states it has been going on for 10 days. Liquid Sugar Melter states the patient knows about his lumbar tumor and has an appointment with Dr. Fofana tomorrow. Liquid Sugar Melter states the patient lives alone in a mobile home and she comes to help him. Patient also complained of some constipation. Patient and hand inserter operator deny any fevers, chills, or any other symptoms at this time. Related Data Home Medications ?Medication ?Instructions ?Recorded ?Confirmed Benztropine Mesylate * (COGENTIN *) 2 mg PO DAILY TREMORS ##0 10/01/12 06/22/23 metoprolol tartrate 25 mg tablet 25 mg PO BID 10/19/19 06/22/23 risperidone 0.25 mg tablet 0.25 mg PO QDAY 10/19/19 06/22/23 sertraline 20 mg/mL oral 100 mg PO QDAY 06/18/23 06/23/23 concentrate Previous Rx's ?Medication ?Instructions ?Recorded sulfamethoxazole 800 1 tab PO BID #14 tabs 07/25/23 mg-trimethoprim 160 mg tablet (Bactrim DS) amoxicillin 875 mg-potassium 1 tab PO BID #20 tabs 05/18/24 clavulanate 125 mg tablet cephalexin 500 mg capsule 500 mg PO QID 7 days #28 caps 05/20/24 ibuprofen 600 mg tablet 600 mg PO Q8H PRN pain #14 tabs 05/20/24 ondansetron 4 mg disintegrating 4 mg PO Q8H PRN nausea and 05/20/24 tablet vomiting #7 tabs Allergies Allergy/AdvReac Type Severity Reaction Status Date / Time No Known Allergies Allergy Verified 05/21/24 09:16 Review of Systems Review of Systems Systems Reviewed: All systems reviewed, normal except as documented Narrative Review of Systems: GEN: No fever, no chills, no weight loss EYES: No discharge, no visual changes, no pain HEENT: No ear pain, no congestion, no sore throat PULM: No shortness of breath, no cough, no congestion CV: No chest pain, no dyspnea on exertion, no palpitations GI: No nausea, no vomiting, no diarrhea, no pain, + constipation : No frequency, no urgency and no dysuria MUSC/SKEL: No joint pain, + left lower back pain SKIN: No rash PSYCH: No hallucinations, no depression HEME/LYMPH: No easy bleeding or bruising tendencies NEURO: No weakness, no headache Past Medical History Past Medical History NEUROLOGIC: Negative Neurological Disorders or Seizures CARDIAC: Positive Cardiac Disorders and Hypertension; Negative Congestive Heart Failure RESPIRATORY: Positive Asthma; Negative Chronic Obstructive Pulmonary Disease (COPD) GASTROINTESTINAL: Negative Gastrointestinal Disorders GENITOURINARY: Positive Genitourinary Disorders and Benign Prostatic Hyperplasia; Negative Renal Disease MUSCULOSKELETAL: Negative Musculoskeletal Disorders ENT: Positive Blind ENDOCRINE: Negative Endocrine Disorders, Diabetes Mellitus Type 1 or Diabetes Mellitus Type 2 HEMATOLOGIC: Negative Blood Disorders or Sickle Cell Disease PSYCHO/SOCIAL: Positive Anxiety OTHER HISTORY: Positive Developmental Delay; Negative Autoimmune Disease, Blood Transfusions, Blood Transfusion Reaction, Anesthesia Reactions or Cancer Family History FAMILY HISTORY: Negative Family Psychiatric Problems, Family Respiratory Disorders, Family Cardiac Disorders, Family Gastrointestinal Problems, Family Cancer, Family Surgery or Family Anesthesia Reaction Social History SMOKING STATUS: Never smoker SUBSTANCE USE: does not use ED Exam Narrative Physical exam: GENERAL APPEARANCE: Well hydrated, well nourished, in no acute distress. Awake, oriented, at baseline. Crossed eyed. VITALS: All vitals were reviewed and the pulse ox is 97% on room air which is normal according to my interpretation. HEENT: Normocephalic, atramatic, EACs are patent. There is no bulge or retraction. Throat without erythema or exudate. Moist oromucosa. No jaundice. Crossed eyed. NECK: Supple, no JVD or bruits. CARDIOVASCULAR: Heart regular without S3-S4 or murmur. No rubs or gallops. LUNGS/CHEST: Clear to auscultation bilaterally. No rales, rhonchi, or wheezing. Normal inspection. ABDOMEN: Soft, nontender, with normal bowel sounds. No pulsatile masses. No rebound, rigidity, or guarding. No incarcerated hernia. Normal inspection and palpation. EXTREMITIES: No edema, clubbing, or cyanosis. Was able to move legs but struggled against gravity due to severe pain in the back. Normal inspection and palpation. SKIN: Warm and dry without rashes. Normal inspection. MUSCULOSKELETAL: No gross deformity, full ROM all upper extremities. Decreased strength and ability to lift both legs against gravity. Normal inspection. NEURO: Alert and oriented x3. At baseline. Cranial nerves II through XII grossly intact. There is weakness and sensory decrease in both legs noted. PSYCHIATRIC: Normal mood and affect. No psychosis. Course Quality Measures none Orders Category Date Time Status CT Screening NOW Care 05/21/24 10:05 Active Miscellaneous Nursing Order NOW Care 05/21/24 15:[address] abdomen pelvis w con Stat Exams 05/21/24 10:[address] lumbar spine wo con Stat Exams 05/21/24 10:04 Completed Blood Culture (Lab) Stat Lab 05/21/24 15:00 Received CBC Stat Lab 05/21/24 10:09 Completed CMP [Comprehensive Metabolic Panel] Stat Lab 05/21/24 10:09 Completed Lipase Stat Lab 05/21/24 10:09 Completed UA, C/S IF [Urinalysis, C/S if Indicated] Stat Lab 05/21/24 13:43 Completed Morphine Inj Med 05/21/24 10:04 Discontinued 4 mg IVP X1 ONE Ondansetron Inj [Zofran Inj] Med 05/21/24 10:04 Discontinued 4 mg IV X1 ONE Piper/Tazo 3.375 gm [Zosyn] 50 ml Med 05/21/24 16:01 Discontinued IV X1 Sodium Chloride 0.9% 1000 ml [Ns] 1,000 ml Med 05/21/24 16:01 Active IV 125 mls/hr Sodium Chloride 0.9% 1000 ml [Ns] 1,000 ml Med 05/21/24 10:04 Discontinued IV 500 mls/hr Vancomycin Inj 1,000 mg Med 05/21/24 16:01 Discontinued Sodium Chloride 0.9% 250 ml [Ns] 250 ml IV X1 Vital Signs Vital signs: Vital Signs Temperature 98.5 F 05/21/24 09:30 Pulse Rate 110 H 05/21/24 09:30 Respiratory Rate 18 05/21/24 09:30 Blood Pressure 195/82 H 05/21/24 09:30 Pulse Oximetry (%) 97 05/21/24 09:30 Oxygen Delivery Method Room Air 05/21/24 09:30 [facility] Patient data External records reviewed:: [facility] previous records (Reviewed last ED visit dated 05/20/24, discharged with the following: Acute pyelonephritis ) Clinical information provided by:: patient and hand inserter operator Social determinants that could affect healthcare access:: none Patient has the following chronic illnesses:: Developmental delay, lumbar tumor, hypertension, and chronic indwelling Sharif catheter How is presenting disease/condition affected by chronic disease/condition?: exacerbated by Evaluation data The following diagnostics were reviewed and interpreted by me:: lab results and radiology exam(s) Lab and/or radiology exams considered but not ordered:: none Interpretation Summary: See above under [facility] narrative. RADIOLOGY Procedure(s): CT lumbar spine [facility] Accession Number(s): [id number] cc: Sameer Ellis MD; Ryan Griffin MD; Magan Doe MD~ Examination: CT lumbar spine, without contrast. 2-D sagittal reconstructions. 2-D coronal reconstructions. 3-D reconstructions. Date and time of exam:May 21, 2024 11:00 AM Indications: Onset lower back pain beginning yesterday CTDI: vol (mGy):24.8 DLP: (mGycm):873 Technique: Multiple 1.25 mm axial sections of the lumbar spine without intravenous contrast have been obtained. 2-D sagittal and coronal reconstructions have been obtained. 3-D reconstructions have been obtained. Low dose protocols were performed. One or more of the following dose reduction techniques were used; automated exposure control, adjustment of the mA and/or KV according to patient size, use of iterative reconstruction technique. Findings: Compared with CT abdomen April 22, 2024, interval severe pathologic compression fracture L2 vertebral body The vertebral body is replaced by osteolytic lesions which extend into the right pedicle of L2 Soft tissue infectious or tumor mass extends into the spinal canal producing severe spinal stenosis at the L2 level Increased soft tissue density is noted paraspinal the L2 level Impression: Severe pathologic compression fracture L2 vertebral body, differential would include osseous metastatic disease, osteomyelitis Recommend MRI lumbar spine follow-up, pre and postcontrast to assess soft tissue tumor or infectious mass severely narrowing the thecal sac and compressing the cauda equina Dictated By: Ryan Griffin MD Procedure(s): CT abdomen pelvis w con Accession Number(s): [id number] cc: Sameer Ellis MD; Ryan Griffin MD; Magan Doe MD~ Examination: CT abdomen with intravenous contrast CT pelvis with intravenous contrast 2-D coronal reconstructions 2-D sagittal reconstructions Date and time of exam:May 21, 2024 11:00 AM Indications: Abdominal pain back pain beginning last night, history right renal calculi, markedly abnormal thickening of urinary bladder wall on CT study May 17, 2024. CTDI: vol (mGy) 9.22 DLP: (mGycm) 566 Technique: Multiple axial sections of the abdomen and pelvis have been obtained. 64 slice high-resolution scanner used. 3 mm axial sections have been obtained, post intravenous injection 60 cc [id number] 2-D sagittal, coronal reconstructions obtained. Low dose protocols were performed. One or more of the following dose reduction techniques were used; automated exposure control, adjustment of the mA and/or KV according to patient size, use of iterative reconstruction technique. Findings: No focal liver lesions Hepatomegaly 18 cm Splenomegaly 14.4 cm No gallstones No pancreatic or adrenal mass Bilateral renal calculi ranging in size from 1 to 4 mm Normal appendix No hydronephrosis with mild wall thickening pelvicalyceal systems and proximal ureters, no ureteral calculi No bowel obstruction No diverticulitis Marked irregular abnormal urinary bladder wall thickening anteriorly measuring up to 26 mm Urinary Sharif catheter Air in the urinary bladder wall, axial image 226 Transverse prostate dimension 43 mm Interval severe pathologic compression L2 vertebral body, reduction in height 90%, the vertebral body replaced by osteolytic lesions extending into the right pedicle axial image 120 Soft tissue infectious or tumor mass extends into the spinal canal producing severe spinal stenosis, axial image 108 Paraspinal soft tissue also is prominent 10 mm osteolytic lesion right first sacral segment Impression: Hepatosplenomegaly Bilateral renal calculi Findings most consistent with urinary tract infection bilaterally Markedly abnormal urinary bladder wall thickening measuring anteriorly up to 26 mm with air density in the anterior urinary bladder wall, consider emphysematous cystitis, urinary bladder cancer not excluded Interval severe pathologic compression L2 vertebral body, that vertebral body replaced by osteolytic lesions extending into the right pedicle of L2 Soft tissue infectious or tumor mass extends posteriorly from the L2 vertebral body into the spinal canal producing severe spinal stenosis Recommend MRI lumbar spine follow-up to exclude compression of the cauda equina Dictated By: Ryan Griffin MD Medications Medications considered but not ordered:: none Medication administrations:: Medication Administration History Sodium Chloride (Ns) 1,000 mls @ 125 mls/hr IV .Q8H ONE Stop: 05/22/24 00:00 Last Admin: 05/21/24 16:17 Dose: 125 mls/hr Documented By: DO Discontinued Medications Sodium Chloride (Ns) 1,000 mls @ 500 mls/hr IV .Q2H ONE Stop: 05/21/24 12:03 Last Infusion: 05/21/24 14:00 Dose: Infused Documented By: Admin: 05/21/24 10:14 Dose: 500 mls/hr Documented By: CHELA Vancomycin HCl 1,000 mg/ (Sodium Chloride) 250 mls @ 150 mls/hr IV X1 ONE Stop: 05/21/24 17:40 Last Admin: 05/21/24 17:54 Dose: 150 mls/hr Documented By: AM Piperacillin/Tazobactam/Dextrose (Zosyn) 50 mls @ 100 mls/hr IV X1 ONE Stop: 05/21/24 16:30 Last Infusion: 05/21/24 17:54 Dose: Infused Documented By: Admin: 05/21/24 16:17 Dose: 100 mls/hr Documented By: Morphine Sulfate (Morphine Sulf Inj 10 Mg/Ml Vial) 4 mg IVP X1 ONE Stop: 05/21/24 10:05 Last Admin: 05/21/24 10:17 Dose: 4 mg Documented By: CHELA Ondansetron HCl (Ondansetron Inj 2 Mg/Ml Inj 2 Ml) 4 mg IV X1 ONE; Protocol Stop: 05/21/24 10:05 Last Admin: 05/21/24 10:16 Dose: 4 mg Documented By: GM see above if any Consultations Consultation(s) initiated? (list below): Yes Diagnosis Differential Diagnosis ED Complaint MDM: Pathological compression fracture of L2 Most likely diagnosis given after review of the tests above:: Pathological fracture of the lumbar 2 Admission Indicated Admission indicated?: not indicated (We cannot admit here because we do not have any neurosurgeon) Explain why admission is indicated or not indicated:: No neurosurgeon available in our hospital Admission Request Was there a request for admission?: No Disposition Plan Disposition Plan: other (specify) (6:20 PM, signed out to pending successful transfer to neurosurgeon) Medical Decision Making MDM Narrative MDM Narrative: I, Chrissie Goodman, am scribing for and in the presence of Dr. Doe. CBC negative. CMP and lipase negative. UA negative. See below for CT lumbar spine and CT abdomen and pelvic. 6:15 PM, I spoke to and discussed with the transfer nurse from [facility]. She said that she will talk to her neurosurgeon and call us back regarding transfer request. 6:20 PM, the patient is stable and is signed out to Differential Diagnosis Differential Diagnosis: Pathological compression fracture of L2 Lab Data 05/21/24 10:09 05/21/24 10:09 Labs: Lab Results 05/21/24 05/21/24 Range/Units 10:09 13:43 WBC 11.3 H D (3.8-10.6) Thou/mm3 RBC 5.53 (4.50-5.90) Miln/mm3 Hgb 15.2 (13.5-16.0) g/dL Hct 43.1 (41.0-53.0) % MCV 78 L (80-100) fL MCH 27.5 (25.0-35.0) pg MCHC 35.3 (31.0-37.0) g/dl RDW Std Deviation 37.2 (35.1-43.9) fL Plt Count 303 D (140-440) Thou/mm3 Neut % (Auto) 82 H (37-80) % Lymph % (Auto) 8 L (10-50) % [place] % (Auto) 9 (0-12) % Eos % (Auto) 1 (0-10) % Baso % (Auto) 0 (0-2.5) % Neut # (Auto) 9.2 H (1.8-7.7) Thou/mm3 Lymph # (Auto) 0.9 L (1.0-4.8) Thou/mm3 [place] # (Auto) 1.0 H (0.0-0.8) Thou/mm3 Eos # (Auto) 0.1 (0.0-0.5) Thou/mm3 Baso # (Auto) 0.0 (0.0-0.2) Thou/mm3 Immature Gran # (Auto) 0.04 H (0.00-0.00) Thou/mm3 Absolute Nucleated RBC 0.00 (0.00-0.00) Thou/mm3 Immature Gran % 0 (0-0) % Nucleated RBC % 0 (0) /100 WBC Sodium 138 (136-145) mMol/L Potassium 4.0 (3.4-5.1) mMol/L Chloride 104 (98-107) mMol/L Carbon Dioxide 27.1 (20.0-31.0) mMol/L Anion Gap 7 (7-16) BUN 14 (9-23) mg/dL Creatinine 0.8 (0.6-1.3) mg/dL Estim Creat Clear Calc Not Performed. eGFR > 60 (60 - ) See Note BUN/Creatinine Ratio 18 (12-20) Ratio Glucose 104 (74-106) mg/dL Calculated Osmolality 276 (275-295) Calcium 10.2 (8.3-10.6) mg/dL Corrected Calcium 10.2 H (8.5-10.1) mg/dL Total Bilirubin 0.8 (0.3-1.2) mg/dL AST 29 (0-34) U/L ALT 22 (10-49) U/L Alkaline Phosphatase 118 H D (46-116) U/L Total Protein 7.5 (5.7-8.2) gm/dL Albumin 4.5 D (3.5-5.0) gm/dL Globulin 3.0 (2.3-3.5) gm/dL Albumin/Globulin Ratio 1.5 (1.2-2.2) Lipase 36 (12-53) U/L Ur Collection Type Catheter Urine Color Lt-Yellow (Lt Yel-Yel) Urine Clarity Clear (Clear/Hazy) Urine pH 6.5 (5.0-7.0) Ur Specific [place] 1.012 (1.001-1.035) Urine Protein Trace (Neg - Trace) Urine Glucose (UA) Negative (Negative) Urine Ketones Negative (Negative) Urine Blood Negative (Negative) Urine Nitrite Negative (Negative) Urine Bilirubin Negative (Negative) Urine Urobilinogen (Auto) Negative (0.0-1.0) mg/dL Ur Leukocyte Esterase Positive (Negative) Urine RBC 1 (0-3) /hpf Urine WBC 6 H (0-5) /hpf Ur Squamous Epith Cells 0 (0-5) /hpf Urine Bacteria None (None) Ur Culture Indicated? Not Indicated Discharge Plan Plan Disposition Comment: Stable at signout Prescriptions/Referrals Prescriptions/Med Rec: No Action Benztropine Mesylate * (COGENTIN *) 2 MG tablet 2 mg PO DAILY Qty: 0 risperidone 0.25 mg Tablet 0.25 mg PO QDAY metoprolol tartrate 25 mg Tablet 25 mg PO BID sertraline 20 mg/mL Concentrate 100 mg PO QDAY cephalexin 500 mg capsule 500 mg PO QID 7 Days Qty: 28 0RF ibuprofen 600 mg tablet 600 mg PO Q8H PRN (Reason: pain) Qty: 14 0RF ondansetron 4 mg tablet,disintegrating 4 mg PO Q8H PRN (Reason: nausea and vomiting) Qty: 7 0RF sulfamethoxazole-trimethoprim [Bactrim DS] 800-160 mg tablet 1 tab PO BID Qty: 14 0RF amoxicillin-pot clavulanate 875-125 mg tablet 1 tab PO BID Qty: 20 0RF Referrals: Sameer Ellis MD [Primary Care Provider] - In 1 week Problem List Clinical Impression: Pathological fracture of lumbosacral spine Patient/Caregiver Discharge Instructions Print Language: Mongolian
--- NOTE | 2024-05-21 09:43 | PC.NURSE ---
caregiver states pt has hole in dutton bag. Pt's dutton bag changed to a leg bag.
--- NOTE | 2024-05-21 10:04 | XR_ITS ---
Examination: CT lumbar spine, without contrast. 2-D sagittal reconstructions. 2-D coronal reconstructions. 3-D reconstructions. Date and time of exam:May 21, 2024 11:00 AM Indications: Onset lower back pain beginning yesterday CTDI: vol (mGy):24.8 DLP: (mGycm):873 Technique: Multiple 1.25 mm axial sections of the lumbar spine without intravenous contrast have been obtained. 2-D sagittal and coronal reconstructions have been obtained. 3-D reconstructions have been obtained. Low dose protocols were performed. One or more of the following dose reduction techniques were used; automated exposure control, adjustment of the mA and/or KV according to patient size, use of iterative reconstruction technique. Findings: Compared with CT abdomen April 22, 2024, interval severe pathologic compression fracture L2 vertebral body The vertebral body is replaced by osteolytic lesions which extend into the right pedicle of L2 Soft tissue infectious or tumor mass extends into the spinal canal producing severe spinal stenosis at the L2 level Increased soft tissue density is noted paraspinal the L2 level Impression: Severe pathologic compression fracture L2 vertebral body, differential would include osseous metastatic disease, osteomyelitis Recommend MRI lumbar spine follow-up, pre and postcontrast to assess soft tissue tumor or infectious mass severely narrowing the thecal sac and compressing the cauda equina
--- NOTE | 2024-05-21 10:04 | XR_ITS ---
Examination: CT abdomen with intravenous contrast CT pelvis with intravenous contrast 2-D coronal reconstructions 2-D sagittal reconstructions Date and time of exam:May 21, 2024 11:00 AM Indications: Abdominal pain back pain beginning last night, history right renal calculi, markedly abnormal thickening of urinary bladder wall on CT study May 17, 2024. CTDI: vol (mGy) 9.22 DLP: (mGycm) 566 Technique: Multiple axial sections of the abdomen and pelvis have been obtained. 64 slice high-resolution scanner used. 3 mm axial sections have been obtained, post intravenous injection 60 cc Isovue-370 2-D sagittal, coronal reconstructions obtained. Low dose protocols were performed. One or more of the following dose reduction techniques were used; automated exposure control, adjustment of the mA and/or KV according to patient size, use of iterative reconstruction technique. Findings: No focal liver lesions Hepatomegaly 18 cm Splenomegaly 14.4 cm No gallstones No pancreatic or adrenal mass Bilateral renal calculi ranging in size from 1 to 4 mm Normal appendix No hydronephrosis with mild wall thickening pelvicalyceal systems and proximal ureters, no ureteral calculi No bowel obstruction No diverticulitis Marked irregular abnormal urinary bladder wall thickening anteriorly measuring up to 26 mm Urinary Sharif catheter Air in the urinary bladder wall, axial image 226 Transverse prostate dimension 43 mm Interval severe pathologic compression L2 vertebral body, reduction in height 90%, the vertebral body replaced by osteolytic lesions extending into the right pedicle axial image 120 Soft tissue infectious or tumor mass extends into the spinal canal producing severe spinal stenosis, axial image 108 Paraspinal soft tissue also is prominent 10 mm osteolytic lesion right first sacral segment Impression: Hepatosplenomegaly Bilateral renal calculi Findings most consistent with urinary tract infection bilaterally Markedly abnormal urinary bladder wall thickening measuring anteriorly up to 26 mm with air density in the anterior urinary bladder wall, consider emphysematous cystitis, urinary bladder cancer not excluded Interval severe pathologic compression L2 vertebral body, that vertebral body replaced by osteolytic lesions extending into the right pedicle of L2 Soft tissue infectious or tumor mass extends posteriorly from the L2 vertebral body into the spinal canal producing severe spinal stenosis Recommend MRI lumbar spine follow-up to exclude compression of the cauda equina
[2024-05-21] MEDS: SODIUM CHLORIDE 0.9% 1000 ML 1,000 ML 500 ML IV (10:14)
[2024-05-21] MEDS: ONDANSETRON INJ 2 MG/ML INJ 2 ML 4 MG IV (10:16)
[2024-05-21] MEDS: MORPHINE SULF INJ 10 MG/ML VIAL 4 MG IVP (10:17)
[2024-05-21 10:21] LABS: Basophils % (Auto) 0 % (0-2.5); Eosinophils # (Auto) 0.1 Thou/mm3 (0.0-0.5); Eosinophils % (Auto) 1 % (0-10); Hematocrit 43.1 % (41.0-53.0); Hemoglobin 15.2 g/dL (13.5-16.0); Immature Granulocytes % (Auto) 0 % (0-0); Immature Granulocytes Auto 0.04 Thou/mm3 (0.00-0.00); Lymphocytes # (Auto) 0.9 Thou/mm3 (1.0-4.8); Lymphocytes % (Auto) 8 % (10-50); Mean Corpuscular HGB Conc 35.3 g/dl (31.0-37.0); Mean Corpuscular Hemoglobin 27.5 pg (25.0-35.0); Mean Corpuscular Volume 78 fL (80-100); Monocytes % (Auto) 9 % (0-12); Neutrophils # (Auto) 9.2 Thou/mm3 (1.8-7.7); Neutrophils % (Auto) 82 % (37-80); Nucleated Red Blood Cell % 0 /100 WBC (0); Platelet Count 303 Thou/mm3 (140-440); RDW Standard Deviation 37.2 fL (35.1-43.9); Red Blood Count 5.53 Miln/mm3 (4.50-5.90); White Blood Count 11.3 Thou/mm3 (3.8-10.6)
[2024-05-21 10:39] LABS: Alanine Aminotransferase 22 U/L (10-49); Albumin, Serum 4.5 gm/dL (3.5-5.0); Albumin/Globulin Ratio 1.5 (1.2-2.2); Alkaline Phosphatase 118 U/L (46-116); Anion Gap 7 (7-16); Aspartate Amino Transferase 29 U/L (0-34); BUN/Creatinine Ratio 18 Ratio (12-20); Bilirubin,Total 0.8 mg/dL (0.3-1.2); Blood Urea Nitrogen 14 mg/dL (9-23); Calcium 10.2 mg/dL (8.3-10.6); Calcium (Corrected) 10.2 mg/dL (8.5-10.1); Carbon Dioxide 27.1 mMol/L (20.0-31.0); Chloride 104 mMol/L (98-107); Creatinine (Component) 0.8 mg/dL (0.6-1.3); Glucose 104 mg/dL (74-106); Lipase 36 U/L (12-53); Osmolality,Calculated 276 (275-295); Sodium 138 mMol/L (136-145); Total Protein 7.5 gm/dL (5.7-8.2); eGFR > 60 See Note
[2024-05-21 10:45] VITALS: BMI 27.3
--- NOTE | 2024-05-21 12:31 | PC.NURSE ---
Per Dr. Lawrence, pt can have home medcation: Cephalexin. Caregiver able to give medication at bedside.
[2024-05-21 12:48] VITALS: BP 148/102; PULSE 89; RESP 18; TEMP 36.9; O2SAT 96
[2024-05-21 13:51] LABS: Collection Type, Urine Catheter; Squamous Epithelial Cell,Urine 0 /hpf (0-5)
[2024-05-21 14:00] VITALS: BP 139/95; PULSE 98; RESP 18; TEMP 36.6; O2SAT 96
[2024-05-21 14:01] LABS: Bilirubin,Urine Negative (Negative); Blood,Urine Negative (Negative); Clarity,Urine Clear (Clear/Hazy); Color,Urine Lt-Yellow (Lt Yel-Yel); Culture Indicated,Urine Not Indicated; Glucose, Urine Negative (Negative); Ketones,Urine Negative (Negative); Leukocyte Esterase,Urine Positive (Negative); Nitrite,Urine Negative (Negative); PH,Urine 6.5 (5.0-7.0); Protein,Urine Trace (Neg - Trace); RBC,Urine 1 /hpf (0-3); Specific Gravity,Urine 1.012 (1.001-1.035); Urobilinogen,Urine Negative mg/dL (0.0-1.0); WBC,Urine 6 /hpf (0-5)
[2024-05-21] MEDS: PIPER/TAZO 3.375 GM 50 ML IV (16:17)
[2024-05-21] MEDS: SODIUM CHLORIDE 0.9% 1000 ML 1,000 ML 125 ML IV (16:17)
[2024-05-21 16:33] VITALS: BP 158/113; PULSE 109; RESP 18; TEMP 36.9; O2SAT 96
--- NOTE | 2024-05-21 16:43 | PC.NURSE ---
SISTER AT BEDSIDE UPDATED ON PLAN OF CARE. INFORMED THAT PT NEEDS TO BE TRANSFERRED FOR NEUROSURGERY. PT WAS TRANSFERRED TO [facility] IN APRIL SO I EXPLAINED TO FAMILY THAT FOR CONTINUITY OF CARE I WILL BE CALLING [facility] FIRST. FAMILY NOT WANTING PT TO GO BACK TO [facility] BECAUSE NOTHING WAS DONE LAST TIME. I EXPLAINED TO HER THAT PT IS GETTING WORSE AND THEY HAVE ALL THE SPECIALTIES THEIR THAT CAN HELP HIM. PT REQUESTING US TO HOLD OFF ON TRANSFERRING HIM UNTIL THEY GET A HOLD OF PT POWER OF RISK CONTROL REPRESENTATIVE.
--- NOTE | 2024-05-21 17:19 | PC.NURSE ---
ATTEMPTED TO FAX INFO X5 TO [facility] WITH DIFFICULTY. RESEARCH INTERVIEWER ATTEMPTING TO FAX INFO VIA [employer] AT THIS TIME.
[2024-05-21] MEDS: Vancomycin Inj 1,000 MG in SODIUM CHLORIDE 0.9% 250 ML 250 ML 150 MG IV (17:54)
--- NOTE | 2024-05-21 17:57 | PC.NURSE ---
AGUSTIN ([phone]) IS THE SISTER AT BEDSIDE THAT IS GETTING INTO CONTACT WITH PT'S CASE WORKERS. IRRIGATOR HEAD : WILLIAM CAPONE [phone], AND DEBBIE [phone].
--- NOTE | 2024-05-21 18:00 | PC.NURSE ---
[facility] CONTACTED, INFO GIVEN. SPOKE WITH LORI. LORI SPEAKING TO DAVID BURROWS AT THIS TIME.
--- NOTE | 2024-05-21 18:35 | PC.NURSE ---
[facility] CONTACTED TO SPEAK WITH THE OFFICER OF THE DAY #[phone]. STATES THEY WILL HAVE THE OFFICER OF THE DAY CALL US BACK.
--- NOTE | 2024-05-21 18:58 | PC.NURSE ---
SLADE CARUSO FROM [facility] RETURNED CALL. STATES PT IS NOT CONSERVED. HE CAN MAKE IS OWN DECISIONS AND SIGN HIS OWN PAPERWORK. SISTER IS AT BEDSIDE AND CAN MAKE DECISIONS WELL
[2024-05-21] MEDS: HYDROcodone/APAP 5/325 TABLET 1 TAB PO (19:26)
[2024-05-21 19:28] VITALS: BP 143/97; PULSE 103; RESP 18; TEMP 36.9; O2SAT 98
--- NOTE | 2024-05-21 19:33 | PC.NURSE ---
THIS PT IS ACCEPTED TO [facility] BY DR. BUSH. THIS IS A ER:ER TRANSFER AND NUMBER FOR REPORT IS [phone]. YAMEL WAS THE FACILITY REP I SPOKE WITH FOR ACCEPTING INFORMATION.
--- NOTE | 2024-05-21 20:10 | EDNOTE_ITS ---
Emergency Room Addendum Addendum Narrative: 1800 care assumed by previous shift provider. Past medical, surgical, social and family history reviewed. Vitals and home medications reviewed. Results and treatment plan discussed. I will assume the care of the patient at this time and will follow the patient, pending final disposition. Transfer to neurosurgery was initiated by the previous provider. I encountered and spoke with Mr. Boston and his sister Daphne in person with his case resource manager on speaker phone. They recall transfer to [facility] at the end of April 2024 where at that point intervention was not necessary and they were discharged to follow-up with neuro-oncology. No biopsy was done at that time. They were to follow-up on the however they got a call for a cancellation with [facility] neuro-oncology. They have been trying to contact Dr. Fofana of which they were told was an option as well here in [place] and have not received a call back for an appointment. Mr. Boston's pain has been increasing significantly and he has been calling throughout the night to his case resource manager complaining of back pain. He is stable able to ambulate without cane or walker assistance, but has to sit down more frequently . He has had no bowel incontinence. He has seen urology due to overflow incontinence/urinary retention at the beginning of May where they were urged to see neuro- oncology as soon as possible for biopsy as he is now exhibiting urinary retention. The patient himself is pleasant, nontoxic, has a childlike demeanor. His only complaint is of back pain. On my exam he has no lower extremity neurologic deficit. Patient was accepted by Dr. Del Cid, neurosurgery at [facility].
--- NOTE | 2024-05-21 20:56 | PC.NURSE ---
[facility]
== END 2024-05-21 21:30 | disposition short-term general hospital (02) ==
PROVIDERS: Emergency Medicine; Emergency Provider Emergency Medicine; PCP Family Medicine
DX: M48.56XA Collapsed vertebra, not elsewhere classified, lumbar region, initial encounter for fracture (principal); I10 Essential (primary) hypertension; K59.00 Constipation, unspecified
CPT/HCPCS: 36415; 72131; 74177; 80053; 81001; 83690; 85025; 87040; 87077; 96361; 96365; 96366; 96375; 99285; A4649; J2270; J2405; J2543; J3371; J7030; J7050; Q9967; A9270

== ENCOUNTER 2024-07-12 19:41 | Emergency (ER) | payer MEDICARE, MEDICAID, SELFPAY ==
[2024-07-12 20:33] VITALS: BP 134/89; PULSE 106; RESP 20; TEMP 36.9; O2SAT 97
--- NOTE | 2024-07-13 02:12 | PD.EDMALE ---
ED Male Genitalurinary RME/HPI General Chief complaint: GI Bleed Stated complaint: MELGOZA BAG LEAKING Time Seen by Provider: 07/12/24 20:36 Arrival date/time: 07/12/24 19:41 43M with history of HTN and cancer presents to ED with Melgoza bag leaking. Patient denies any dysuria. Limitations: no limitations Related Data Home Medications ?Medication ?Instructions ?Recorded ?Confirmed Benztropine Mesylate * (COGENTIN *) 2 mg PO DAILY TREMORS ##0 10/01/12 06/22/23 metoprolol tartrate 25 mg tablet 25 mg PO BID 10/19/19 06/22/23 risperidone 0.25 mg tablet 0.25 mg PO QDAY 10/19/19 06/22/23 sertraline 20 mg/mL oral 100 mg PO QDAY 06/18/23 06/23/23 concentrate Previous Rx's ?Medication ?Instructions ?Recorded sulfamethoxazole 800 1 tab PO BID #14 tabs 07/25/23 mg-trimethoprim 160 mg tablet (Bactrim DS) amoxicillin 875 mg-potassium 1 tab PO BID #20 tabs 05/18/24 clavulanate 125 mg tablet ibuprofen 600 mg tablet 600 mg PO Q8H PRN pain #14 tabs 05/20/24 ondansetron 4 mg disintegrating 4 mg PO Q8H PRN nausea and 05/20/24 tablet vomiting #7 tabs Allergies Allergy/AdvReac Type Severity Reaction Status Date / Time No Known Allergies Allergy Verified 05/21/24 09:16 Review of Systems Review of Systems Systems Reviewed: All systems reviewed, normal except as documented Constitutional Constitutional: Reports system reviewed and no additional complaints, except as documented, Denies fever(s) and Denies headache(s) ENT Ears, Nose, Mouth, and Throat: Denies disequilibrium and Denies headache(s) Cardiovascular Cardiovascular: Reports system reviewed and no additional complaints, except as documented, Denies chest pain and Denies dyspnea Respiratory Respiratory: Reports system reviewed and no additional complaints, except as documented, Denies cough and Denies dyspnea Gastrointestinal Gastrointestinal: Reports system reviewed and no additional complaints, except as documented, Denies abdominal pain, Denies nausea and Denies vomiting Neurologic Neurologic: Reports system reviewed and no additional complaints, except as documented, Denies confusion, Denies disequilibrium and Denies headache(s) Psychiatric Psychiatric: Denies confusion Past Medical History Past Medical History NEUROLOGIC: Negative Neurological Disorders or Seizures CARDIAC: Positive Hypertension; Negative Cardiac Disorders or Congestive Heart Failure RESPIRATORY: Positive Asthma; Negative Chronic Obstructive Pulmonary Disease (COPD) GASTROINTESTINAL: Negative Gastrointestinal Disorders GENITOURINARY: Positive Genitourinary Disorders (CATHETER IN PLACE, RECURRENT UTI) and Benign Prostatic Hyperplasia; Negative Renal Disease MUSCULOSKELETAL: Negative Musculoskeletal Disorders ENT: Positive Blind ENDOCRINE: Negative Endocrine Disorders, Diabetes Mellitus Type 1 or Diabetes Mellitus Type 2 HEMATOLOGIC: Negative Blood Disorders or Sickle Cell Disease PSYCHO/SOCIAL: Positive Anxiety OTHER HISTORY: Positive Developmental Delay and 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.); Negative Autoimmune Disease, Blood Transfusions, Blood Transfusion Reaction or Anesthesia Reactions Family History FAMILY HISTORY: Negative Family Psychiatric Problems, Family Respiratory Disorders, Family Cardiac Disorders, Family Gastrointestinal Problems, Family Cancer, Family Surgery or Family Anesthesia Reaction Social History SMOKING STATUS: Never smoker SUBSTANCE USE: does not use ED Exam General Limitations: Present no limitations General appearance: Present alert and in no apparent distress Head Head exam: Present atraumatic Eye Eye exam: Present normal appearance, PERRL and EOMI ENT ENT exam: Present normal exam, normal oropharynx and mucous membranes moist Neck Neck exam: Present normal inspection, full ROM and trachea midline Chest Chest inspection: Present normal inspection and symmetric chest wall rise Respiratory Respiratory exam: Present normal lung sounds bilaterally Cardiovascular Cardiovascular exam: Present regular rate, normal rhythm and normal heart sounds Abdominal Exam Abdominal exam: Present soft and normal bowel sounds Extremities Exam Extremities exam: Present normal inspection and full ROM Back Exam Back exam: Present normal inspection and full ROM Neurological Exam Neurological exam: Present alert, oriented X3 and CN II-XII intact Psychiatric Psychiatric exam: Present normal affect and normal mood Skin Skin exam: Present warm, dry, intact and normal color Course Quality Measures none Orders Category Date Time Status Melgoza to Leg Bag Routine Care 07/12/24 20:37 Ordered Vital Signs Vital signs: Vital Signs Temperature 98.4 F 07/12/24 20:33 Pulse Rate 106 H 07/12/24 20:33 Respiratory Rate 20 07/12/24 20:33 Blood Pressure 134/89 H 07/12/24 20:33 Pulse Oximetry (%) 97 07/12/24 20:33 Oxygen Delivery Method Room Air 07/12/24 20:33 O2 at 97% on RA and WNLs Urogenital - Male MDM Narrative MDM Narrative:: 43M with history of HTN and cancer presents to ED with Melgoza bag leaking. Patient denies any dysuria. Physical exam reveals no pelvic/flank tenderness. Patient is afebrile, calm, and alert. New Melgoza bag given. Patient data External records reviewed:: [facility] previous records Clinical information provided by:: patient Social determinants that could affect healthcare access:: none Patient has the following chronic illnesses:: none How is presenting disease/condition affected by chronic disease/condition?: no chronic disease Evaluation data The following diagnostics were reviewed and interpreted by me:: other (specify) (none) Lab and/or radiology exams considered but not ordered:: not ordered Interpretation Summary: n/a Medications / Prescriptions Medications or Prescriptions considered but not ordered:: not ordered Medication administrations:: n/a Consultations Consultation(s) initiated? (list below): No Diagnosis Urogenital Male Differential Diagnosis: urinary tract infection, priapism, urethritis, epididymitis, genital herpes simplex, prostatitis, acute retention of urine, inguinal hernia and other (Melgoza replacement) Most likely diagnosis given after review of the tests above:: Melgoza replacement Admission Indicated Admission indicated?: not indicated Admission Request Was there a request for admission?: No Disposition Plan Disposition Plan: Discharge Discharge Attestation Discharge Attestation: The patient and all family members were given an opportunity to ask questions and understood the discharge instructions. Discharge instructions specifically effects, indications for sooner follow up or return to the emergency department, and the expected course of current diagnosis. Patient condition: Stable Discharge Plan Plan Patient Disposition: HOME (Self Care) Disposition Comment: Stable Prescriptions/Referrals Prescriptions/Med Rec: No Action Benztropine Mesylate * (COGENTIN *) 2 MG tablet 2 mg PO DAILY Qty: 0 risperidone 0.25 mg Tablet 0.25 mg PO QDAY metoprolol tartrate 25 mg Tablet 25 mg PO BID sertraline 20 mg/mL Concentrate 100 mg PO QDAY ibuprofen 600 mg tablet 600 mg PO Q8H PRN (Reason: pain) Qty: 14 0RF ondansetron 4 mg tablet,disintegrating 4 mg PO Q8H PRN (Reason: nausea and vomiting) Qty: 7 0RF sulfamethoxazole-trimethoprim [Bactrim DS] 800-160 mg tablet 1 tab PO BID Qty: 14 0RF amoxicillin-pot clavulanate 875-125 mg tablet 1 tab PO BID Qty: 20 0RF Problem List Clinical Impression: Encounter for Melgoza catheter replacement Patient/Caregiver Discharge Instructions Additional Instructions: Please follow-up with PCP within 24-48 hours and return immediately if symptoms worsen. Print Language: Guamanian Stand Alone Forms: Patient Portal Info Letter PA/RAILCAR SWITCHMAN Supervising Physician PA/RAILCAR SWITCHMAN Supervising Physician: Dr. Becerra
== END 2024-07-12 21:26 | disposition home or self-care (01) ==
PROVIDERS: Emergency Provider Emergency Medicine
DX: T83.031A Leakage of indwelling urethral catheter, initial encounter (principal); Y84.6 Urinary catheterization as the cause of abnormal reaction of the patient, or of later complication, without mention of misadventure at the time of the procedure
CPT/HCPCS: 99282

== ENCOUNTER 2024-07-18 19:29 | Emergency (ER) | payer MEDICARE, MEDICAID, SELFPAY ==
[2024-07-18 19:30] VITALS: BMI 26.4
[2024-07-18 20:16] VITALS: BP 165/105; PULSE 105; RESP 17; TEMP 36.6; O2SAT 100
--- NOTE | 2024-07-18 20:50 | PD.EDMALE ---
ED Male Genitalurinary RME/HPI General Chief complaint: Urogenital-Male Stated complaint: CATHETER PAIN Time Seen by Provider: 07/18/24 20:37 Arrival date/time: 07/18/24 19:29 Related Data Home Medications ?Medication ?Instructions ?Recorded ?Confirmed Benztropine Mesylate * (COGENTIN *) 2 mg PO DAILY TREMORS ##0 10/01/12 06/22/23 metoprolol tartrate 25 mg tablet 25 mg PO BID 10/19/19 06/22/23 risperidone 0.25 mg tablet 0.25 mg PO QDAY 10/19/19 06/22/23 sertraline 20 mg/mL oral 100 mg PO QDAY 06/18/23 06/23/23 concentrate Previous Rx's ?Medication ?Instructions ?Recorded sulfamethoxazole 800 1 tab PO BID #14 tabs 07/25/23 mg-trimethoprim 160 mg tablet (Bactrim DS) amoxicillin 875 mg-potassium 1 tab PO BID #20 tabs 05/18/24 clavulanate 125 mg tablet ibuprofen 600 mg tablet 600 mg PO Q8H PRN pain #14 tabs 05/20/24 ondansetron 4 mg disintegrating 4 mg PO Q8H PRN nausea and 05/20/24 tablet vomiting #7 tabs Allergies Allergy/AdvReac Type Severity Reaction Status Date / Time No Known Allergies Allergy Verified 05/21/24 09:16 Course Orders Category Date Time Status Sharif [Urinary Catheter, Remove] ONCE Care 07/18/24 20:48 Active Vital Signs Vital signs: Vital Signs Temperature 97.9 F 07/18/24 20:16 Pulse Rate 105 H 07/18/24 20:16 Respiratory Rate 17 07/18/24 20:16 Blood Pressure 165/105 H 07/18/24 20:16 Pulse Oximetry (%) 100 07/18/24 20:16 Oxygen Delivery Method Room Air 07/18/24 20:16 Urogenital - Male MDM Narrative MDM Narrative:: 43M with history of HTN and cancer presents to ED with wanting Sharif cath removed because it irritates me. Spoke to patient's caregiver who states patient is not conserved and he makes his own medical decisions. Patient's urologist (patient has appt next week) told caregiver he should leave it in due to frequent UTIs and Physical exam reveals no pelvic/flank tenderness. Patient is afebrile, calm, and alert. New Sharif bag given. Discharge Plan Plan Patient Disposition: HOME (Self Care) Disposition Comment: [place] Prescriptions/Referrals Prescriptions/Med Rec: No Action Benztropine Mesylate * (COGENTIN *) 2 MG tablet 2 mg PO DAILY Qty: 0 risperidone 0.25 mg Tablet 0.25 mg PO QDAY metoprolol tartrate 25 mg Tablet 25 mg PO BID sertraline 20 mg/mL Concentrate 100 mg PO QDAY ibuprofen 600 mg tablet 600 mg PO Q8H PRN (Reason: pain) Qty: 14 0RF ondansetron 4 mg tablet,disintegrating 4 mg PO Q8H PRN (Reason: nausea and vomiting) Qty: 7 0RF sulfamethoxazole-trimethoprim [Bactrim DS] 800-160 mg tablet 1 tab PO BID Qty: 14 0RF amoxicillin-pot clavulanate 875-125 mg tablet 1 tab PO BID Qty: 20 0RF Problem List Clinical Impression: Encounter for Sharif catheter removal Patient/Caregiver Discharge Instructions Additional Instructions: Please follow-up with PCP within 24-48 hours and return immediately if symptoms worsen. Print Language: Yakut Stand Alone Forms: Patient Portal Info Letter AMPARO/FOZIA Supervising Physician AMPARO/FOZIA Supervising Physician: Dr. Adkins
--- NOTE | 2024-07-18 20:55 | PD.EDRME ---
Rapid Medical Screening Exam RME Arrival date/time: 07/18/24 19:29 43M with history of HTN and cancer presents to ED with wanting Sharif cath removed because it irritates me. Chief Complaint: Urogenital-Male Time Seen by Provider: 07/18/24 20:37 Vital signs: Vital Signs Temperature 97.9 F 07/18/24 20:16 Pulse Rate 105 H 07/18/24 20:16 Respiratory Rate 17 07/18/24 20:16 Blood Pressure 165/105 H 07/18/24 20:16 Pulse Oximetry (%) 100 07/18/24 20:16 Oxygen Delivery Method Room Air 07/18/24 20:16
== END 2024-07-18 21:00 | disposition left against medical advice (07) ==
LOC: SERX 20:47
PROVIDERS: Emergency Provider Emergency Medicine
DX: Z46.6 Encounter for fitting and adjustment of urinary device (principal); I10 Essential (primary) hypertension; Z85.9 Personal history of malignant neoplasm, unspecified; Z53.29 Procedure and treatment not carried out because of patient's decision for other reasons
CPT/HCPCS: 99282

== ENCOUNTER 2025-03-08 16:23 | Emergency (ER) | payer MEDICARE, MEDICAID, SELFPAY ==
[2025-03-08 16:24] VITALS: BMI 33.2
[2025-03-08 17:06] VITALS: BP 148/92; PULSE 100; RESP 18; TEMP 36.6; O2SAT 99
--- NOTE | 2025-03-08 17:19 | XR_ITS ---
Examination: Duplex scan of the lower extremity, unilateral left Date and time of exam: 03/08/2025 at 5:39 p.m. Technique: Duplex scan of the extremity veins using B-mode/grayscale imaging and Doppler spectral analysis and color flow Attention is directed to internal echogenicity, compression and augmentation involving these veins, color flow assessment, spectral analysis Findings: Major deep venous structures in the extremity demonstrate normal course and caliber. There is no evidence of deep vein thrombosis. Normal color flow and spectral analysis Impression: Negative for DVT..
--- NOTE | 2025-03-08 17:19 | XR_ITS ---
Examination: Tibia-Fibula, left, 2 views Technique: Tibia-fibula AP lateral, 2 views (3 images total) Date and time of exam: 03/08/2025, 5:18 p.m. INDICATION: Lower leg pain that started last night. No reported injury. COMPARISON: Left knee radiographs 03/20/2022 FINDINGS: No evidence for fracture or aggressive bone lesion. Anterior tibiotalar osteoarthrosis with prominent osteophyte formation is visualized on the lateral view. Circumferential soft tissue swelling is present at the ankle. Limited views of the left knee show no significant abnormality. IMPRESSION: Anterior tibiotalar osteoarthrosis with circumferential soft tissue swelling at the left ankle. Consider dedicated left ankle radiographs for further evaluation. Otherwise, no evidence for acute osseous abnormality involving the left tibia and fibula.
--- NOTE | 2025-03-08 17:20 | PD.EDRME ---
Rapid Medical Screening Exam RME Arrival date/time: 03/08/25 16:23 44-year-old male presents to department today with caregiver who reports patient went to the clinic today for leg pain patient is here to rule out DVT Chief Complaint: Extremity Problem,Nontraumatic Vital signs: Vital Signs Temperature 98 F 03/08/25 17:06 Pulse Rate 100 03/08/25 17:06 Respiratory Rate 18 03/08/25 17:06 Blood Pressure 148/92 H 03/08/25 17:06 Pulse Oximetry (%) 99 03/08/25 17:06 Oxygen Delivery Method Room Air 03/08/25 17:06 Vital signs reviewed by provider: Yes Exam: On exam patient well-appearing patient is not appear toxic no acute distress patient is mild tenderness to the left leg no acute deformity noted Clinical Impression: Imaging obtained
--- NOTE | 2025-03-08 18:44 | PD.EDEXREM ---
ED Extremity Problem RME/HPI General Chief complaint: Extremity Problem,Nontraumatic Stated complaint: SENT TO R/O BLOOD CLOT LEFT LEG,PAIN x 2 DAYS Time Seen by Provider: 03/08/25 18:34 Arrival date/time: 03/08/25 16:23 44-year-old male patient with significant history of mental retardation, Came in for evaluation regarding left lower leg pain has been ongoing for the last 2 days, associated with mild swelling. Denies any trauma or fall. Denies any shortness of breath denies any history of DVT denies any history of lung problems. Patient went to PCP and was referred to us to rule out blood clots. Patient is not take any blood thinner. RME / HPI RME / HPI Narrative: 03/08/25 16:23 44-year-old male presents to department today with caregiver who reports patient went to the clinic today for leg pain patient is here to rule out DVT Exam: On exam patient well-appearing patient is not appear toxic no acute distress patient is mild tenderness to the left leg no acute deformity noted Impression: Imaging obtained Related Data Home Medications ?Medication ?Instructions ?Recorded ?Confirmed Benztropine Mesylate * (COGENTIN *) 2 mg PO DAILY TREMORS ##0 10/01/12 06/22/23 metoprolol tartrate 25 mg tablet 25 mg PO BID 10/19/19 06/22/23 risperidone 0.25 mg tablet 0.25 mg PO QDAY 10/19/19 06/22/23 sertraline 20 mg/mL oral 100 mg PO QDAY 06/18/23 06/23/23 concentrate Previous Rx's ?Medication ?Instructions ?Recorded sulfamethoxazole 800 1 tab PO BID #14 tabs 07/25/23 mg-trimethoprim 160 mg tablet (Bactrim DS) amoxicillin 875 mg-potassium 1 tab PO BID #20 tabs 05/18/24 clavulanate 125 mg tablet ibuprofen 600 mg tablet 600 mg PO Q8H PRN pain #14 tabs 05/20/24 ondansetron 4 mg disintegrating 4 mg PO Q8H PRN nausea and 05/20/24 tablet vomiting #7 tabs Allergies Allergy/AdvReac Type Severity Reaction Status Date / Time No Known Allergies Allergy Verified 03/08/25 16:26 Review of Systems Review of Systems Narrative Review of Systems: Review of system reviewed and within normal limits except mentioned in HPI ED Exam Narrative Physical exam: VITAL SIGNS: Reviewed. GENERAL APPEARANCE: Alert and interactive, follows commands, no acute distress, HEAD AND FACE: Non-traumatic. ENT: PERRL, pink conjunctivitis, eyelid no trauma, Mucous membrane moist. NECK: Supple, nontender, no nuchal rigidity. CHEST: No tenderness, no crepitus, no paradoxical movement, no retractions. LUNGS: Clear, well ventilated, symmetric, no rales, no wheezing, no ronchi, no stridor, good breath sounds bilaterally. HEART: Regular rate, regular rhythm, no murmur, no gallops. ABDOMEN: Soft, positive bowel sounds, nondistended, no guarding, nontender, no rebound, no masses, RECTAL: Deferred. GENITAL: Deferred. NEUROLOGICAL: Gross motor function intact sensory function intact, Appropriate for age. MUSCULOSKELETAL: low back nontender, full range of motion. EXTREMITIES: Left posterior leg tenderness, mild swelling no redness distal neurovascular status intact, full range of motion. SKIN: Color pink, dry, no rash, no lacerations, no abrasions, no contusions. LYMPHATICS: Deferred. Course Quality Measures none Orders Category Date Time Status US venous doppler LE LT Stat Exams 03/08/25 17:19 Completed XR tibia fibula LT 2V Stat Exams 03/08/25 17:19 Completed Vital Signs Vital signs: Vital Signs Temperature 98 F 03/08/25 17:06 Pulse Rate 100 03/08/25 17:06 Respiratory Rate 18 03/08/25 17:06 Blood Pressure 148/92 H 03/08/25 17:06 Pulse Oximetry (%) 99 03/08/25 17:06 Oxygen Delivery Method Room Air 03/08/25 17:06 Extremity Problem MDM Narrative MDM Narrative:: 44-year-old male patient with significant history of mental retardation, Came in for evaluation regarding left lower leg pain has been ongoing for the last 2 days, associated with mild swelling. Denies any trauma or fall. Denies any shortness of breath denies any history of DVT denies any history of lung problems. Patient went to PCP and was referred to us to rule out blood clots. Patient is not take any blood thinner. Ultrasound of the left lower extremities is negative for DVT. X-ray of the leg came back unremarkable also. Results discussed with her caregiver. Stable for charged home Patient data External records reviewed:: None Clinical information provided by:: patient and surety bond agent Social determinants that could affect healthcare access:: mental health Patient has the following chronic illnesses:: Mental retardation How is presenting disease/condition affected by chronic disease/condition?: uneffected by Evaluation data The following diagnostics were reviewed and interpreted by me:: radiology exam(s) Lab and/or radiology exams considered but not ordered:: None Interpretation Summary: See results MDM Medications / Prescriptions Medications or Prescriptions considered but not ordered:: None Medication administrations:: None Consultations Consultation(s) initiated? (list below): No Diagnosis Extremity Problem Differential Diagnosis: lower extremity edema and deep vein thrombosis of lower extremity Most likely diagnosis given after review of the tests above:: leg pain Admission Indicated Admission indicated?: not indicated Admission Request Was there a request for admission?: No Disposition Plan Disposition Plan: Discharge Discharge Attestation Discharge Attestation: The patient and all family members were given an opportunity to ask questions and understood the discharge instructions. Discharge instructions specifically effects, indications for sooner follow up or return to the emergency department, and the expected course of current diagnosis. Patient condition: Stable Discharge Plan Plan Patient Disposition: HOME (Self Care) Discharge Disposition comment: Stable Prescriptions/Referrals Prescriptions/Med Rec: No Action Benztropine Mesylate * (COGENTIN *) 2 MG tablet 2 mg PO DAILY Qty: 0 risperidone 0.25 mg Tablet 0.25 mg PO QDAY metoprolol tartrate 25 mg Tablet 25 mg PO BID sertraline 20 mg/mL Concentrate 100 mg PO QDAY ibuprofen 600 mg tablet 600 mg PO Q8H PRN (Reason: pain) Qty: 14 0RF ondansetron 4 mg tablet,disintegrating 4 mg PO Q8H PRN (Reason: nausea and vomiting) Qty: 7 0RF sulfamethoxazole-trimethoprim [Bactrim DS] 800-160 mg tablet 1 tab PO BID Qty: 14 0RF amoxicillin-pot clavulanate 875-125 mg tablet 1 tab PO BID Qty: 20 0RF Problem List Clinical Impression: Left leg pain Patient/Caregiver Discharge Instructions Discharge Activity: activity as tolerated Education Materials: Understanding the Pain Response Additional Instructions: Thank you for the opportunity for serving you today. You are stable for discharged . You are advised to: Follow-up with your PCP in 1 to 2 days Return to ED for worsening of symptoms Increase oral fluids Take [id number] Tylenol or Motrin as needed for pain Print Language: Armenian Stand Alone Forms: Mary Award Info., Patient Portal Info Letter
== END 2025-03-08 19:00 | disposition home or self-care (01) ==
LOC: SERX 18:55
PROVIDERS: Emergency Provider Nurse Practitioner Family; PCP Family Medicine
DX: M79.662 Pain in left lower leg (principal); F70 Mild intellectual disabilities
CPT/HCPCS: 73590; 93971; 99282

== ENCOUNTER 2025-03-17 18:31 | Emergency (ER) | payer MEDICARE, MEDICAID, SELFPAY ==
[2025-03-17 18:54] VITALS: BP 147/73; PULSE 100; RESP 18; TEMP 36.9; O2SAT 99; BMI 32.5
--- NOTE | 2025-03-17 21:43 | PC.NURSE ---
CALLED FOR ULTRASOUND BUT NO ANSWER AT ER LOBBY OR OUTSIDE ER.
--- NOTE | 2025-03-17 22:00 | PC.NURSE ---
NO ANSWER AT ER LOBBY OR OUTSIDE TO DO US.
--- NOTE | 2025-03-17 22:01 | PD.EDRME ---
Rapid Medical Screening Exam [facility] Arrival date/time: 03/17/25 18:31 This is a case of 44-year-old male came in with his caregiver complaining of left leg pain for 2 weeks no injury no trauma patient have history of varicose vein surgery patient was here 2 weeks ago where the ultrasound was done and it was negative due to persistence of the symptoms this patient decided to sought consult here in the emergency room Chief Complaint: Extremity Injury, Lower Time Seen by Provider: 03/17/25 18:38 Vital signs: Vital Signs Temperature 98.4 F 03/17/25 18:54 Pulse Rate 100 03/17/25 18:54 Respiratory Rate 18 03/17/25 18:54 Blood Pressure 147/73 H 03/17/25 18:54 Pulse Oximetry (%) 99 03/17/25 18:54 Oxygen Delivery Method Room Air 03/17/25 18:54 Exam: Noted moderate tenderness on the left posterior leg but no crepitation no deformity ROM intact neurovascular intact no calf tenderness negative Dennison signs negative Homans' sign Clinical Impression: Left leg pain
--- NOTE | 2025-03-17 22:13 | PC.NURSE ---
NO ANSWER AT ER LOBBY OR OUTSIDE ER TO DO US.
== END 2025-03-17 22:15 | disposition left against medical advice (07) ==
LOC: SERX 22:17
PROVIDERS: Emergency Provider Emergency Medicine
DX: M79.605 Pain in left leg (principal); Z53.29 Procedure and treatment not carried out because of patient's decision for other reasons
CPT/HCPCS: 99281